=== PATIENT | male | born 1955 | race Caucasian/White ===

== ENCOUNTER 2020-02-14 17:02 | Inpatient (IN) | payer MEDICARE ==
[~2020-02-14] VITALS: Ht 182.9 cm; Wt 117.9 kg
[2020-02-14 18:32] LABS: BASOPHILS % (AUTO) 0.2 % (0.0-5.0); HEMATOCRIT 45.4 % (42-54); LYMPHOCYTES % (AUTO) 10.5 % (21.0-51.0); MEAN CORPUSCULAR HEMOGLOBIN 28.5 pg (27.0-33.0); MEAN CORPUSCULAR HGB CONC 33.9 g/dL (32.0-36.0); MEAN CORPUSCULAR VOLUME 84.1 fL (79-99); NEUTROPHILS % (AUTO) 82.9 % (40.0-77.0); PLATELET COUNT (AUTO) 133 K/uL (130-400); RED CELL DISTRIBUTION WIDTH 13.3 % (11.0-15.5); WHITE BLOOD COUNT (AUTO) 4.5 K/uL (4.8-10.8)
[2020-02-14 18:39] LABS: INR 0.94 (0.85-1.15); PARTIAL THROMBOPLASTIN TIME 32.1 SEC (26.3-35.5); PROTHROMBIN TIME 10.2 SEC (9.6-11.6)
[2020-02-14 18:44] LABS: CRP QUANTITATIVE 95.6 mg/L (0.00-9.0)
[2020-02-14 18:46] LABS: CREATININE 1.1 mg/dL (0.5-1.5); POTASSIUM 3.1 mmol/L (3.5-5.1)
[2020-02-14] MEDS ORDERED: POTASSIUM CHLORIDE 20 MEQ ERTAB PO ONE (18:54)
[2020-02-14 18:58] LABS: ALBUMIN 3.2 g/dL (3.5-5.0); BILIRUBIN,TOTAL 0.9 mg/dL (0.2-1.0); TOTAL PROTEIN, SERUM 7.7 g/dL (6.0-8.3)
[2020-02-14 19:06] LABS: B-TYPE NATRIURETIC PEPTIDE 14 pg/mL (0-100)
[2020-02-14 19:09] LABS: FERRITIN 227 ng/mL (30-400)
[2020-02-14 19:50] LABS: ABG BASE EXCESS 2.6 mmol/L (-2.0-3.0); ABG HCO3 25.4 mmol/L (21.0-28.0); ABG OXYGEN SATURATION 89.3 % (95.0-99.0); ABG PCO2 34 mmHg (35-48)
[2020-02-14 20:17] LABS: ERYTHROCYTE SEDIMENTATION RATE 45 MM/HR (0-20)
[2020-02-14] MEDS ORDERED: LACTULOSE 20 GM/30 ML UDCUP PO PRN (20:45)
[2020-02-14] MEDS ORDERED: LIDOCAINE HCL-MPF 1% 2ML VIAL IV PRN (20:45)
[2020-02-14] MEDS ORDERED: ERGOCALCIFEROL (VITAMIN D2) 50,000 UNIT CAPSULE PO ONE (20:45)
[2020-02-14] MEDS ORDERED: CEFTRIAXONE SODIUM 1 GM IV SCH (20:45)
[2020-02-14] MEDS ORDERED: POTASSIUM CHLORIDE 10MEQ/100ML 100 ML IV PRN (20:45)
[2020-02-14] MEDS ORDERED: AZITHROMYCIN 500MG+NS 250ML 250 ML IV SCH (20:45)
[2020-02-14] MEDS: DEXAMETHASONE SOD PHOSPHATE 4 MG/ML 1ML VIAL IVP SCH (20:45)
[2020-02-14] MEDS ORDERED: PHARMACY COMMUNICATION**REMDESIVIR ORDER MISC SCH (20:45)
[2020-02-14] MEDS ORDERED: ONDANSETRON HCL 4 MG/2 ML VIAL IV PRN (20:45)
[2020-02-14] MEDS ORDERED: ACETAMINOPHEN 325 MG TAB PO PRN (20:45)
[2020-02-14] MEDS ORDERED: AZITHROMYCIN 500MG+NS 250ML 250 ML IV ONE (20:46)
[2020-02-14] MEDS ORDERED: CEFTRIAXONE SODIUM 1 GM ONE (20:47)
[2020-02-14 20:55] LABS: CHOLESTEROL 109 mg/dL (<200); HDL CHOLESTEROL 80 mg/dL (29-71); LDL DIRECT 60 mg/dL (0-99); TRIGLYCERIDES 93 mg/dL (30-200)
[2020-02-14] MEDS: FAMOTIDINE 20MG TAB 20 MG TAB PO SCH (21:00)
[2020-02-14] MEDS ORDERED: IOHEXOL-350 75 ML VIAL IV ONE (21:29)
[2020-02-14 23:24] LABS: APPEARANCE,URINE Clear (CLEAR); BILIRUBIN,URINE Negative (NEGATIVE); COLOR,URINE Dark Yellow (YELLOW); GLUCOSE, URINE (UA) Negative (NEGATIVE); KETONES,URINE Negative (NEGATIVE); LEUKOCYTE ESTERASE ,URINE Negative (NEGATIVE); NITRATE,URINE Negative (NEGATIVE); OCCULT BLOOD,URINE Negative (NEGATIVE); PH,URINE 5.5 (5.0-8.0); PROTEIN,URINE POS 1+ mg/dL (NEGATIVE)
[2020-02-14 23:50] VITALS: BP 137/77
[2020-02-15] MEDS: ACETAMINOPHEN 325 MG TAB PO PRN (02:44)
[2020-02-15] MEDS ORDERED: ASPI-1197 PO (03:12)
[2020-02-15] MEDS ORDERED: CLOB30CR5 TP (03:12)
[2020-02-15] MEDS ORDERED: AMLO-257 PO (03:12)
[2020-02-15] MEDS ORDERED: LOVA40TA2 PO (03:12)
[2020-02-15] MEDS ORDERED: LOSA100T58 PO (03:12)
[2020-02-15] MEDS ORDERED: HYDR25TA PO (03:12)
[2020-02-15] MEDS ORDERED: LEVO100C4 PO (03:12)
[2020-02-15 03:48] VITALS: BP 128/79
[2020-02-15 04:39] LABS: BASOPHILS % (AUTO) 0.2 % (0.0-5.0); HEMATOCRIT 44.4 % (42-54); LYMPHOCYTES % (AUTO) 7.4 % (21.0-51.0); MEAN CORPUSCULAR HEMOGLOBIN 28.6 pg (27.0-33.0); MEAN CORPUSCULAR HGB CONC 33.8 g/dL (32.0-36.0); MEAN CORPUSCULAR VOLUME 84.6 fL (79-99); MONOCYTES % (AUTO) 4.6 % (3.0-13.0); NEUTROPHILS % (AUTO) 87.4 % (40.0-77.0); PLATELET COUNT (AUTO) 141 K/uL (130-400); RED BLOOD CELL COUNT(AUTO) 5.25 MIL/uL (4.50-6.20); RED CELL DISTRIBUTION WIDTH 13.3 % (11.0-15.5); WHITE BLOOD COUNT (AUTO) 5.4 K/uL (4.8-10.8)
[2020-02-15 05:02] LABS: BILIRUBIN,TOTAL 0.8 mg/dL (0.2-1.0); CRP QUANTITATIVE 123.8 mg/L (0.00-9.0); POTASSIUM 3.1 mmol/L (3.5-5.1); TOTAL PROTEIN, SERUM 7.4 g/dL (6.0-8.3)
[2020-02-15] MEDS: POTASSIUM CHLORIDE 20 MEQ ERTAB PO PRN ×3 (06:55→12:41)
[2020-02-15 07:00] VITALS: BP 119/65
[2020-02-15] MEDS ORDERED: REMDESIVIR (EUA) 520 200 MG in SODIUM CHLORIDE 0.9% 250 ML IV ONE (07:45)
[2020-02-15] MEDS ORDERED: COMPOUND IV REFRIGERATED 1 EACH IVSOLN MISC PRN (07:45)
[2020-02-15] MEDS: ZINC SULFATE 220 CAPSULE PO SCH (08:08)
[2020-02-15] MEDS: ASCORBIC ACID 500 MG TAB PO SCH (08:08)
[2020-02-15] MEDS: FAMOTIDINE 20MG TAB 20 MG TAB PO SCH ×2 (08:08→22:01)
[2020-02-15] MEDS ORDERED: ENOXAPARIN SODIUM 120 MG/0.8ML SQ SCH (09:00)
[2020-02-15] MEDS ORDERED: ENOXAPARIN SODIUM 1 MG/KG SQ SCH (09:00)
[2020-02-15 11:00] VITALS: BP 127/66
[2020-02-15] MEDS ORDERED: SODIUM CHLORIDE 0.9% 250 ML IV ONE (13:01)
[2020-02-15 16:00] VITALS: BP 138/76
[2020-02-15 19:20] VITALS: BP 103/66
[2020-02-15] MEDS: ENOXAPARIN SODIUM 120 MG/0.8ML SQ SCH (22:01)
[2020-02-15] MEDS: DEXAMETHASONE SOD PHOSPHATE 4 MG/ML 1ML VIAL IVP SCH (22:02)
[2020-02-16] VITALS (46 sets, daily range): BP systolic 97–129; BP diastolic 41–75
[2020-02-16 04:48] LABS: HEMATOCRIT 43.7 % (42-54); LYMPHOCYTES % (AUTO) 7.6 % (21.0-51.0); MEAN CORPUSCULAR HEMOGLOBIN 28.2 pg (27.0-33.0); MEAN CORPUSCULAR VOLUME 85.7 fL (79-99); MONOCYTES % (AUTO) 2.9 % (3.0-13.0); PLATELET COUNT (AUTO) 152 K/uL (130-400); RED CELL DISTRIBUTION WIDTH 13.2 % (11.0-15.5); WHITE BLOOD COUNT (AUTO) 6.3 K/uL (4.8-10.8)
[2020-02-16 05:12] LABS: ALBUMIN 2.8 g/dL (3.5-5.0); BILIRUBIN,DIRECT 0.2 mg/dL (0.0-0.3); BILIRUBIN,TOTAL 0.8 mg/dL (0.2-1.0); POTASSIUM 3.5 mmol/L (3.5-5.1); TOTAL PROTEIN, SERUM 7.3 g/dL (6.0-8.3)
[2020-02-16] MEDS: PHARMACY COMMUNICATION MISC SCH (06:00)
[2020-02-16 06:04] LABS: CRP QUANTITATIVE 170.9 mg/L (0.00-9.0)
[2020-02-16] MEDS: POTASSIUM CHLORIDE 20 MEQ ERTAB PO PRN ×2 (06:13→08:52)
[2020-02-16] MEDS: ASCORBIC ACID 500 MG TAB PO SCH (08:52)
[2020-02-16] MEDS: ZINC SULFATE 220 CAPSULE PO SCH (08:52)
[2020-02-16] MEDS: FAMOTIDINE 20MG TAB 20 MG TAB PO SCH ×2 (08:52→20:25)
[2020-02-16] MEDS: REMDESIVIR (EUA) 520 100 MG in SODIUM CHLORIDE 0.9% 250 ML IV SCH (08:53)
[2020-02-16] MEDS: ENOXAPARIN SODIUM 120 MG/0.8ML SQ SCH ×2 (08:53→20:25)
[2020-02-16] MEDS: DEXAMETHASONE SOD PHOSPHATE 4 MG/ML 1ML VIAL IVP SCH ×2 (09:10→20:25)
[2020-02-16] MEDS ORDERED: FUROSEMIDE 10 MG/ML 10ML VIAL IVP SCH (12:27)
[2020-02-16] MEDS ORDERED: FUROSEMIDE 10 MG/ML 4ML VIAL IVP SCH (14:00)
[2020-02-16] MEDS: FUROSEMIDE 10 MG/ML 2ML VIAL IV SCH (20:28)
[2020-02-17] VITALS (62 sets, daily range): BP systolic 81–142; BP diastolic 39–74
[2020-02-17 04:03] LABS: BASOPHILS % (AUTO) 0.1 % (0.0-5.0); HEMATOCRIT 45.6 % (42-54); LYMPHOCYTES % (AUTO) 7.5 % (21.0-51.0); MEAN CORPUSCULAR HEMOGLOBIN 28.3 pg (27.0-33.0); MEAN CORPUSCULAR HGB CONC 33.6 g/dL (32.0-36.0); MEAN CORPUSCULAR VOLUME 84.4 fL (79-99); MONOCYTES % (AUTO) 3.2 % (3.0-13.0); NEUTROPHILS % (AUTO) 88.8 % (40.0-77.0); PLATELET COUNT (AUTO) 206 K/uL (130-400); RED CELL DISTRIBUTION WIDTH 13.3 % (11.0-15.5); WHITE BLOOD COUNT (AUTO) 7.7 K/uL (4.8-10.8)
[2020-02-17 04:23] LABS: ALBUMIN 2.6 g/dL (3.5-5.0); BILIRUBIN,TOTAL 0.7 mg/dL (0.2-1.0); CREATININE 1.1 mg/dL (0.5-1.5); CRP QUANTITATIVE 107.9 mg/L (0.00-9.0); POTASSIUM 3.4 mmol/L (3.5-5.1); TOTAL PROTEIN, SERUM 7.1 g/dL (6.0-8.3)
[2020-02-17] MEDS: FUROSEMIDE 10 MG/ML 2ML VIAL IV SCH ×3 (04:30→21:52)
[2020-02-17] MEDS: POTASSIUM CHLORIDE 10% ELIXIR 20 MEQ/15 ML UDCUP PO PRN ×2 (04:36→10:25)
[2020-02-17] MEDS: PHARMACY COMMUNICATION MISC SCH (06:00)
[2020-02-17] MEDS: FAMOTIDINE 20MG TAB 20 MG TAB PO SCH ×2 (08:10→21:42)
[2020-02-17] MEDS: ENOXAPARIN SODIUM 120 MG/0.8ML SQ SCH ×2 (08:10→21:42)
[2020-02-17] MEDS: DEXAMETHASONE SOD PHOSPHATE 4 MG/ML 1ML VIAL IVP SCH ×2 (08:11→21:41)
[2020-02-17] MEDS: ASCORBIC ACID 500 MG TAB PO SCH (08:11)
[2020-02-17] MEDS: REMDESIVIR (EUA) 520 100 MG in SODIUM CHLORIDE 0.9% 250 ML IV SCH (08:11)
[2020-02-17] MEDS: ZINC SULFATE 220 CAPSULE PO SCH (08:11)
[2020-02-18] VITALS (42 sets, daily range): BP systolic 110–153; BP diastolic 33–83
[2020-02-18] MEDS: FUROSEMIDE 10 MG/ML 2ML VIAL IV SCH ×3 (05:17→20:42)
[2020-02-18] MEDS: PHARMACY COMMUNICATION MISC SCH (06:00)
[2020-02-18 06:32] LABS: ALBUMIN 2.7 g/dL (3.5-5.0); BILIRUBIN,DIRECT 0.1 mg/dL (0.0-0.3); BILIRUBIN,TOTAL 0.6 mg/dL (0.2-1.0); POTASSIUM 3.4 mmol/L (3.5-5.1); TOTAL PROTEIN, SERUM 7.2 g/dL (6.0-8.3)
[2020-02-18] MEDS: ENOXAPARIN SODIUM 120 MG/0.8ML SQ SCH ×2 (09:04→20:43)
[2020-02-18] MEDS: ASCORBIC ACID 500 MG TAB PO SCH (09:05)
[2020-02-18] MEDS: DEXAMETHASONE SOD PHOSPHATE 4 MG/ML 1ML VIAL IVP SCH ×2 (09:05→20:42)
[2020-02-18] MEDS: FAMOTIDINE 20MG TAB 20 MG TAB PO SCH ×2 (09:05→20:43)
[2020-02-18] MEDS: ZINC SULFATE 220 CAPSULE PO SCH (09:05)
[2020-02-18] MEDS: REMDESIVIR (EUA) 520 100 MG in SODIUM CHLORIDE 0.9% 250 ML IV SCH (09:44)
[2020-02-19] VITALS (20 sets, daily range): BP systolic 113–173; BP diastolic 49–80
[2020-02-19] MEDS: FUROSEMIDE 10 MG/ML 2ML VIAL IV SCH ×3 (06:09→20:26)
[2020-02-19] MEDS: LEVOTHYROXINE 100 MCG TABLET PO SCH (06:10)
[2020-02-19] MEDS: ACETAMINOPHEN 325 MG TAB PO PRN (06:10)
[2020-02-19] MEDS: PHARMACY COMMUNICATION MISC SCH (06:11)
[2020-02-19] MEDS: FAMOTIDINE 20MG TAB 20 MG TAB PO SCH ×2 (08:16→20:27)
[2020-02-19] MEDS: ZINC SULFATE 220 CAPSULE PO SCH (08:16)
[2020-02-19] MEDS: ASCORBIC ACID 500 MG TAB PO SCH (08:16)
[2020-02-19] MEDS: DEXAMETHASONE SOD PHOSPHATE 4 MG/ML 1ML VIAL IVP SCH ×2 (08:17→20:26)
[2020-02-19] MEDS: ENOXAPARIN SODIUM 120 MG/0.8ML SQ SCH ×2 (08:18→20:27)
[2020-02-19] MEDS ORDERED: NON-FORMULARY MEDICATION 1 EACH (Levothyroxine Sodium (Levothyroxine) 100 MCG) PO SCH (09:00)
[2020-02-19] MEDS ORDERED: SENNOSIDES 8.6 MG TABLET PO SCH (09:45)
[2020-02-19] MEDS: SODIUM CHLORIDE 45 ML SPRY NS SCH ×4 (12:08→20:28)
[2020-02-19 13:24] LABS: ALBUMIN 2.8 g/dL (3.5-5.0); BILIRUBIN,DIRECT 0.2 mg/dL (0.0-0.3); BILIRUBIN,TOTAL 0.7 mg/dL (0.2-1.0); POTASSIUM 3.6 mmol/L (3.5-5.1)
[2020-02-19] MEDS: POTASSIUM CHLORIDE 20 MEQ ERTAB PO PRN (14:03)
[2020-02-19] MEDS: REMDESIVIR (EUA) 520 100 MG in SODIUM CHLORIDE 0.9% 250 ML IV SCH (14:28)
[2020-02-19] MEDS: DOCUSATE SODIUM 100 MG CAP PO SCH (20:26)
[2020-02-19] MEDS: SIMVASTATIN 10 MG TABLET PO SCH (20:27)
[2020-02-19] MEDS: INSULIN HUMULIN R 100 UNIT/ML 3ML SQ SCH (21:00)
[2020-02-20] VITALS (24 sets, daily range): BP systolic 105–148; BP diastolic 43–115
[2020-02-20 04:18] LABS: HEMATOCRIT 45.9 % (42-54); MEAN CORPUSCULAR HGB CONC 32.9 g/dL (32.0-36.0); PLATELET COUNT (AUTO) 293 K/uL (130-400); RED CELL DISTRIBUTION WIDTH 13.3 % (11.0-15.5); WHITE BLOOD COUNT (AUTO) 10.7 K/uL (4.8-10.8)
[2020-02-20 04:27] LABS: CREATININE 0.9 mg/dL (0.5-1.5); MAGNESIUM 2.4 mg/dL (1.80-2.40); POTASSIUM 3.3 mmol/L (3.5-5.1)
[2020-02-20 04:44] LABS: LYMPHOCYTES % (MANUAL) 4 % (22-44); MAN.DIFF COMMENT-IMPRESSION MANUAL DIFFERENTIAL; MONOCYTES % (MANUAL) 1 % (2-9); SEGMENTED NEUTROPHILS % 95 % (40-70)
[2020-02-20 04:45] LABS: PLATELET MORPHOLOGY COMMENT ADEQUATE
[2020-02-20] MEDS: LEVOTHYROXINE 100 MCG TABLET PO SCH (05:39)
[2020-02-20] MEDS: FUROSEMIDE 10 MG/ML 2ML VIAL IV SCH ×3 (05:39→20:21)
[2020-02-20] MEDS: PHARMACY COMMUNICATION MISC SCH (05:40)
[2020-02-20 06:33] LABS: HEMOGLOBIN A1C 6.3 % (4.0-6.0)
[2020-02-20] MEDS: INSULIN HUMULIN R 100 UNIT/ML 3ML SQ SCH ×4 (07:30→20:36)
[2020-02-20 08:02] LABS: ALBUMIN 2.7 g/dL (3.5-5.0); BILIRUBIN,DIRECT 0.2 mg/dL (0.0-0.3); BILIRUBIN,TOTAL 0.8 mg/dL (0.2-1.0); TOTAL PROTEIN, SERUM 6.8 g/dL (6.0-8.3)
[2020-02-20] MEDS: SENNOSIDES 8.6 MG TABLET PO SCH (08:57)
[2020-02-20] MEDS: FAMOTIDINE 20MG TAB 20 MG TAB PO SCH ×2 (08:57→20:21)
[2020-02-20] MEDS: ASCORBIC ACID 500 MG TAB PO SCH (08:57)
[2020-02-20] MEDS: DEXAMETHASONE SOD PHOSPHATE 4 MG/ML 1ML VIAL IVP SCH ×2 (08:57→20:21)
[2020-02-20] MEDS: DOCUSATE SODIUM 100 MG CAP PO SCH ×2 (08:57→20:21)
[2020-02-20] MEDS: ZINC SULFATE 220 CAPSULE PO SCH (08:57)
[2020-02-20] MEDS: ENOXAPARIN SODIUM 120 MG/0.8ML SQ SCH ×2 (08:58→20:22)
[2020-02-20] MEDS: SODIUM CHLORIDE 45 ML SPRY NS SCH ×4 (08:58→20:23)
[2020-02-20] MEDS: POTASSIUM CHLORIDE 20 MEQ ERTAB PO PRN ×2 (09:23→12:09)
[2020-02-20 11:08] LABS: ABG BASE EXCESS 1.2 mmol/L (-2.0-3.0); ABG HCO3 22.9 mmol/L (21.0-28.0); ABG OXYGEN SATURATION 86.1 % (95.0-99.0); ABG PCO2 29 mmHg (35-48)
[2020-02-20] MEDS: SIMVASTATIN 10 MG TABLET PO SCH (20:21)
[2020-02-21] VITALS (23 sets, daily range): BP systolic 110–143; BP diastolic 56–80
[2020-02-21 04:02] LABS: ABG BASE EXCESS 2.4 mmol/L (-2.0-3.0); ABG HCO3 25.2 mmol/L (21.0-28.0); ABG OXYGEN SATURATION 95.1 % (95.0-99.0); ABG PCO2 34 mmHg (35-48)
[2020-02-21 04:44] LABS: BASOPHILS % (AUTO) 0.2 % (0.0-5.0); EOSINOPHILS % (AUTO) 0.1 % (0.0-8.0); MEAN CORPUSCULAR HEMOGLOBIN 27.9 pg (27.0-33.0); MEAN CORPUSCULAR HGB CONC 32.9 g/dL (32.0-36.0); MEAN CORPUSCULAR VOLUME 84.7 fL (79-99); MONOCYTES % (AUTO) 2.1 % (3.0-13.0); NEUTROPHILS % (AUTO) 92.4 % (40.0-77.0); PLATELET COUNT (AUTO) 325 K/uL (130-400); RED BLOOD CELL COUNT(AUTO) 5.67 MIL/uL (4.50-6.20); RED CELL DISTRIBUTION WIDTH 13.3 % (11.0-15.5); WHITE BLOOD COUNT (AUTO) 9.8 K/uL (4.8-10.8)
[2020-02-21 04:59] LABS: CREATININE 0.8 mg/dL (0.5-1.5); CRP QUANTITATIVE 43.6 mg/L (0.00-9.0); POTASSIUM 3.6 mmol/L (3.5-5.1)
[2020-02-21] MEDS: FUROSEMIDE 10 MG/ML 2ML VIAL IV SCH ×3 (05:10→21:25)
[2020-02-21] MEDS: POTASSIUM CHLORIDE 20 MEQ ERTAB PO PRN ×2 (05:10→05:34)
[2020-02-21] MEDS: LEVOTHYROXINE 100 MCG TABLET PO SCH (05:10)
[2020-02-21] MEDS: INSULIN HUMULIN R 100 UNIT/ML 3ML SQ SCH ×4 (07:30→21:00)
[2020-02-21] MEDS: DOCUSATE SODIUM 100 MG CAP PO SCH ×4 (08:18→21:23)
[2020-02-21] MEDS: ASCORBIC ACID 500 MG TAB PO SCH (08:18)
[2020-02-21] MEDS: ZINC SULFATE 220 CAPSULE PO SCH (08:18)
[2020-02-21] MEDS: SENNOSIDES 8.6 MG TABLET PO SCH (08:18)
[2020-02-21] MEDS: FAMOTIDINE 20MG TAB 20 MG TAB PO SCH ×2 (08:19→21:28)
[2020-02-21] MEDS: DEXAMETHASONE SOD PHOSPHATE 4 MG/ML 1ML VIAL IVP SCH ×2 (08:19→21:25)
[2020-02-21] MEDS: ENOXAPARIN SODIUM 120 MG/0.8ML SQ SCH (08:19)
[2020-02-21] MEDS: SODIUM CHLORIDE 45 ML SPRY NS SCH ×4 (08:20→21:28)
[2020-02-21] MEDS: ENOXAPARIN SODIUM 60 MG/0.6 ML SQ SCH ×2 (09:00→21:27)
[2020-02-21] MEDS ORDERED: POLYETHYLENE GLYCOL 3350 17 GM POWD.PACK PO SCH (09:15)
[2020-02-21] MEDS: SIMVASTATIN 10 MG TABLET PO SCH (21:22)
[2020-02-22] VITALS (20 sets, daily range): BP systolic 118–167; BP diastolic 60–86
[2020-02-22 04:23] LABS: CREATININE 0.9 mg/dL (0.5-1.5); CRP QUANTITATIVE 32.1 mg/L (0.00-9.0); MAGNESIUM 2.5 mg/dL (1.80-2.40); POTASSIUM 3.4 mmol/L (3.5-5.1)
[2020-02-22] MEDS: POTASSIUM CHLORIDE 20 MEQ ERTAB PO PRN (05:23)
[2020-02-22] MEDS: FUROSEMIDE 10 MG/ML 2ML VIAL IV SCH ×3 (06:33→20:53)
[2020-02-22] MEDS: LEVOTHYROXINE 100 MCG TABLET PO SCH (06:37)
[2020-02-22] MEDS: INSULIN HUMULIN R 100 UNIT/ML 3ML SQ SCH ×4 (07:30→21:00)
[2020-02-22] MEDS: SODIUM CHLORIDE 45 ML SPRY NS SCH ×4 (09:00→20:58)
[2020-02-22] MEDS: ENOXAPARIN SODIUM 60 MG/0.6 ML SQ SCH ×2 (09:19→20:54)
[2020-02-22] MEDS: DEXAMETHASONE SOD PHOSPHATE 4 MG/ML 1ML VIAL IVP SCH ×2 (09:19→20:53)
[2020-02-22] MEDS: DOCUSATE SODIUM 100 MG CAP PO SCH ×3 (09:20→20:53)
[2020-02-22] MEDS: ZINC SULFATE 220 CAPSULE PO SCH (09:20)
[2020-02-22] MEDS: ASCORBIC ACID 500 MG TAB PO SCH (09:20)
[2020-02-22] MEDS: SENNOSIDES 8.6 MG TABLET PO SCH (09:20)
[2020-02-22] MEDS: FAMOTIDINE 20MG TAB 20 MG TAB PO SCH ×2 (09:20→20:53)
[2020-02-22] MEDS: POTASSIUM CHLORIDE 10MEQ/100ML 100 ML IV SCH ×2 (10:41→20:56)
[2020-02-22] MEDS: SIMVASTATIN 10 MG TABLET PO SCH (20:53)
[2020-02-22] MEDS ORDERED: POTASSIUM CHLORIDE 10MEQ/100ML 10 MEQ/100 ML ML IV SCH (21:00)
[2020-02-23] VITALS (23 sets, daily range): BP systolic 118–150; BP diastolic 62–88
[2020-02-23 04:31] LABS: HEMATOCRIT 47.7 % (42-54); MEAN CORPUSCULAR HEMOGLOBIN 28.3 pg (27.0-33.0); MEAN CORPUSCULAR HGB CONC 33.1 g/dL (32.0-36.0); MEAN CORPUSCULAR VOLUME 85.3 fL (79-99); RED BLOOD CELL COUNT(AUTO) 5.59 MIL/uL (4.50-6.20); RED CELL DISTRIBUTION WIDTH 13.3 % (11.0-15.5)
[2020-02-23 04:42] LABS: ALBUMIN 2.5 g/dL (3.5-5.0); CARBON DIOXIDE 27 mmol/L (21-32); CHLORIDE 103 mmol/L (101-111); CREATININE 0.9 mg/dL (0.5-1.5); GLOMERULAR FILTR. RATE CALC 90 mL/min (>60); GLUCOSE,RANDOM 147 mg/dL (70-105); POTASSIUM 3.7 mmol/L (3.5-5.1); SODIUM SERUM 140 mmol/L (136-145); UREA NITROGEN, BLOOD 30 mg/dL (7-18)
[2020-02-23] MEDS: FUROSEMIDE 10 MG/ML 2ML VIAL IV SCH (06:03)
[2020-02-23] MEDS: LEVOTHYROXINE 100 MCG TABLET PO SCH (06:07)
[2020-02-23] MEDS: INSULIN HUMULIN R 100 UNIT/ML 3ML SQ SCH ×4 (06:29→21:00)
[2020-02-23] MEDS: SENNOSIDES 8.6 MG TABLET PO SCH (10:07)
[2020-02-23] MEDS: DEXAMETHASONE SOD PHOSPHATE 4 MG/ML 1ML VIAL IVP SCH ×2 (10:07→22:20)
[2020-02-23] MEDS: ZINC SULFATE 220 CAPSULE PO SCH (10:07)
[2020-02-23] MEDS: DOCUSATE SODIUM 100 MG CAP PO SCH ×3 (10:08→21:00)
[2020-02-23] MEDS: ENOXAPARIN SODIUM 60 MG/0.6 ML SQ SCH ×2 (10:08→22:00)
[2020-02-23] MEDS: ASCORBIC ACID 500 MG TAB PO SCH (10:08)
[2020-02-23] MEDS: SODIUM CHLORIDE 45 ML SPRY NS SCH ×4 (10:09→21:00)
[2020-02-23] MEDS ORDERED: FAMOTIDINE 20MG TAB 20 MG TAB PO SCH (21:00)
[2020-02-23] MEDS: SIMVASTATIN 10 MG TABLET PO SCH (21:00)
[2020-02-23] MEDS ORDERED: ENOXAPARIN SODIUM 80 MG/0.8 ML SQ ONE (22:46)
[2020-02-24] VITALS (16 sets, daily range): BP systolic 97–161; BP diastolic 41–100
[2020-02-24] MEDS: LEVOTHYROXINE 100 MCG TABLET PO SCH (06:02)
[2020-02-24] MEDS: INSULIN HUMULIN R 100 UNIT/ML 3ML SQ SCH ×4 (07:30→20:55)
[2020-02-24 08:25] LABS: CREATININE 0.9 mg/dL (0.5-1.5); POTASSIUM 3.5 mmol/L (3.5-5.1)
[2020-02-24] MEDS: DOCUSATE SODIUM 100 MG CAP PO SCH ×3 (09:11→20:53)
[2020-02-24] MEDS: FAMOTIDINE 20MG TAB 20 MG TAB PO SCH (09:11)
[2020-02-24] MEDS: ZINC SULFATE 220 CAPSULE PO SCH (09:11)
[2020-02-24] MEDS: ASCORBIC ACID 500 MG TAB PO SCH (09:12)
[2020-02-24] MEDS: FUROSEMIDE 40 MG TABLET PO SCH (09:12)
[2020-02-24] MEDS: DEXAMETHASONE SOD PHOSPHATE 4 MG/ML 1ML VIAL IVP SCH ×2 (09:12→20:53)
[2020-02-24] MEDS: SENNOSIDES 8.6 MG TABLET PO SCH (09:12)
[2020-02-24] MEDS: ENOXAPARIN SODIUM 60 MG/0.6 ML SQ SCH ×2 (09:13→20:54)
[2020-02-24] MEDS: SODIUM CHLORIDE 45 ML SPRY NS SCH ×4 (09:13→20:56)
[2020-02-24] MEDS ORDERED: QUETIAPINE FUMARATE 25 MG TAB PO SCH (18:50)
[2020-02-24] MEDS: SIMVASTATIN 10 MG TABLET PO SCH (20:53)
[2020-02-24] MEDS ORDERED: PROPOFOL 1000 MG/100 ML 100 ML IV ONE ×2 (22:08→23:59)
[2020-02-24] MEDS ORDERED: FENTANYL CITRATE PF 0.05 MG/ML 1,000 MCG in SODIUM CHLORIDE 0.9% 100 ML IVPB PRN (22:45)
[2020-02-24] MEDS ORDERED: NOREPINEPHRINE 4MG/NS 250ML 250 ML IV PRN (22:45)
[2020-02-24] MEDS ORDERED: FENTANYL 2500MCG+NS 250ML 250 ML IV ONE (22:47)
[2020-02-24] MEDS ORDERED: VECURONIUM BROMIDE 10 MG ML IV ONE (22:47)
[2020-02-25] VITALS (55 sets, daily range): BP systolic 100–174; BP diastolic 55–91
[2020-02-25 00:18] LABS: ABG BASE EXCESS -5.7 mmol/L (-2.0-3.0); ABG HCO3 25.2 mmol/L (21.0-28.0); ABG PCO2 72 mmHg (35-48)
[2020-02-25] MEDS ORDERED: DEXTROSE 5%-WATER 1,000 ML IV ONE (00:36)
[2020-02-25] MEDS ORDERED: SODIUM BICARB 50MEQ 50ML VIAL 150 ML ONE (00:37)
[2020-02-25] MEDS: SODIUM BICARB 8.4% 50ML SYRING 150 MEQ in DEXTROSE 5%-WATER 1,000 ML IVP SCH ×3 (01:04→20:39)
[2020-02-25] MEDS ORDERED: MAGNESIUM 2GM PREMIX 50ML 50 ML IV PRN (01:15)
[2020-02-25 05:56] LABS: BASOPHILS % (AUTO) 0.4 % (0.0-5.0); LYMPHOCYTES % (AUTO) 1.3 % (21.0-51.0); MEAN CORPUSCULAR HGB CONC 31.3 g/dL (32.0-36.0); MEAN CORPUSCULAR VOLUME 89.3 fL (79-99); MONOCYTES % (AUTO) 3.2 % (3.0-13.0); NEUTROPHILS % (AUTO) 91.6 % (40.0-77.0); PLATELET COUNT (AUTO) 416 K/uL (130-400); RED BLOOD CELL COUNT(AUTO) 5.82 MIL/uL (4.50-6.20); RED CELL DISTRIBUTION WIDTH 13.7 % (11.0-15.5); WHITE BLOOD COUNT (AUTO) 29.4 K/uL (4.8-10.8)
[2020-02-25 06:17] LABS: ALBUMIN 2.3 g/dL (3.5-5.0); BILIRUBIN,TOTAL 0.8 mg/dL (0.2-1.0); CREATININE 1.3 mg/dL (0.5-1.5); CRP QUANTITATIVE 142.8 mg/L (0.00-9.0); MAGNESIUM 3.9 mg/dL (1.80-2.40); POTASSIUM 4.4 mmol/L (3.5-5.1); TOTAL PROTEIN, SERUM 7.3 g/dL (6.0-8.3)
[2020-02-25] MEDS: LEVOTHYROXINE 100 MCG TABLET PO SCH ×2 (06:30→07:50)
[2020-02-25] MEDS: VECURONIUM BROMIDE 50 MG in SODIUM CHLORIDE 0.9% 50 ML IV PRN ×3 (06:59→18:41)
[2020-02-25] MEDS: PROPOFOL 1000 MG/100 ML 100 ML IV PRN ×4 (07:07→21:49)
[2020-02-25 07:55] LABS: ABG BASE EXCESS -0.1 mmol/L (-2.0-3.0); ABG HCO3 28.8 mmol/L (21.0-28.0); ABG OXYGEN SATURATION 93.8 % (95.0-99.0); ABG PCO2 66 mmHg (35-48)
[2020-02-25] MEDS: ZINC SULFATE 220 CAPSULE PO SCH (08:37)
[2020-02-25] MEDS: DOCUSATE SODIUM 100 MG CAP PO SCH ×3 (08:38→20:36)
[2020-02-25] MEDS: SENNOSIDES 8.6 MG TABLET PO SCH (08:38)
[2020-02-25] MEDS: ASCORBIC ACID 500 MG TAB PO SCH (08:38)
[2020-02-25] MEDS: FAMOTIDINE 20MG TAB 20 MG TAB PO SCH (08:38)
[2020-02-25] MEDS: ENOXAPARIN SODIUM 60 MG/0.6 ML SQ SCH ×2 (08:39→20:39)
[2020-02-25] MEDS: DEXAMETHASONE SOD PHOSPHATE 4 MG/ML 1ML VIAL IVP SCH ×2 (08:39→20:35)
[2020-02-25] MEDS: INSULIN HUMULIN R 100 UNIT/ML 3ML SQ SCH ×3 (08:46→17:26)
[2020-02-25] MEDS: FUROSEMIDE 40 MG TABLET PO SCH (09:00)
[2020-02-25] MEDS: SODIUM CHLORIDE 45 ML SPRY NS SCH ×4 (09:40→20:36)
[2020-02-25] MEDS ORDERED: FENTANYL 2500MCG+NS 250ML 250 ML IV ONE (11:24)
[2020-02-25] MEDS ORDERED: RENAL DOSE IV SCH (13:45)
[2020-02-25] MEDS ORDERED: DEXMEDETOMIDINE HCL 200 MCG in SODIUM CHLORIDE 0.9% 50 ML IV SCH (14:00)
[2020-02-25] MEDS ORDERED: DEXMEDETOMIDINE HCL 400 MCG in SODIUM CHLORIDE 0.9% 100 ML IV SCH (14:15)
[2020-02-25] MEDS: AZITHROMYCIN 500MG+NS 250ML 250 ML IV SCH (14:38)
[2020-02-25] MEDS: CEFEPIME HCL 2 GM VIAL IVP SCH (14:38)
[2020-02-25] MEDS: ARTIFICAL TEARS SOL 15 ML OD SCH ×2 (16:56→20:35)
[2020-02-25] MEDS: SIMVASTATIN 10 MG TABLET PO SCH (20:36)
[2020-02-26] VITALS (64 sets, daily range): BP systolic 97–164; BP diastolic 55–87
[2020-02-26] MEDS: PROPOFOL 1000 MG/100 ML 100 ML IV PRN ×7 (01:59→20:45)
[2020-02-26] MEDS: CEFEPIME HCL 2 GM VIAL IVP SCH ×2 (02:01→14:25)
[2020-02-26] MEDS: ARTIFICAL TEARS SOL 15 ML OD SCH ×6 (04:00→20:54)
[2020-02-26 04:13] LABS: ABG BASE EXCESS 9.8 mmol/L (-2.0-3.0); ABG HCO3 37.5 mmol/L (21.0-28.0); ABG OXYGEN SATURATION 96.7 % (95.0-99.0); ABG PCO2 63 mmHg (35-48)
[2020-02-26 05:58] LABS: BASOPHILS % (AUTO) 0.2 % (0.0-5.0); HEMATOCRIT 47.6 % (42-54); LYMPHOCYTES % (AUTO) 2.6 % (21.0-51.0); MEAN CORPUSCULAR HEMOGLOBIN 28.2 pg (27.0-33.0); MEAN CORPUSCULAR HGB CONC 31.5 g/dL (32.0-36.0); MEAN CORPUSCULAR VOLUME 89.5 fL (79-99); MONOCYTES % (AUTO) 4.7 % (3.0-13.0); NEUTROPHILS % (AUTO) 91.4 % (40.0-77.0); PLATELET COUNT (AUTO) 326 K/uL (130-400); RED BLOOD CELL COUNT(AUTO) 5.32 MIL/uL (4.50-6.20); RED CELL DISTRIBUTION WIDTH 13.6 % (11.0-15.5); WHITE BLOOD COUNT (AUTO) 19.9 K/uL (4.8-10.8)
[2020-02-26 06:14] LABS: ALBUMIN 1.9 g/dL (3.5-5.0); BILIRUBIN,DIRECT 0.3 mg/dL (0.0-0.3); BILIRUBIN,TOTAL 0.6 mg/dL (0.2-1.0); CRP QUANTITATIVE 131.7 mg/L (0.00-9.0); MAGNESIUM 2.9 mg/dL (1.80-2.40); POTASSIUM 4.1 mmol/L (3.5-5.1); TOTAL PROTEIN, SERUM 6.3 g/dL (6.0-8.3)
[2020-02-26] MEDS: LEVOTHYROXINE 100 MCG TABLET PO SCH (06:27)
[2020-02-26] MEDS: INSULIN HUMULIN R 100 UNIT/ML 3ML SQ SCH ×4 (06:30→18:00)
[2020-02-26] MEDS: SODIUM BICARB 8.4% 50ML SYRING 150 MEQ in DEXTROSE 5%-WATER 1,000 ML IVP SCH (07:35)
[2020-02-26] MEDS ORDERED: PANTOPRAZOLE 40 MG/VIAL IVP SCH (09:00)
[2020-02-26] MEDS: SENNOSIDES 8.6 MG TABLET PO SCH (09:28)
[2020-02-26] MEDS: DOCUSATE SODIUM 100 MG CAP PO SCH ×3 (09:28→20:46)
[2020-02-26] MEDS: ASCORBIC ACID 500 MG TAB PO SCH (09:28)
[2020-02-26] MEDS: DEXAMETHASONE SOD PHOSPHATE 4 MG/ML 1ML VIAL IVP SCH (09:28)
[2020-02-26] MEDS: ENOXAPARIN SODIUM 60 MG/0.6 ML SQ SCH ×2 (09:29→20:47)
[2020-02-26] MEDS: SODIUM CHLORIDE 45 ML SPRY NS SCH ×4 (09:30→20:54)
[2020-02-26] MEDS: VECURONIUM BROMIDE 50 MG in SODIUM CHLORIDE 0.9% 50 ML IV PRN (09:40)
[2020-02-26] MEDS: ZINC SULFATE 220 CAPSULE PO SCH (09:44)
[2020-02-26] MEDS ORDERED: FENTANYL 2500MCG+NS 250ML 250 ML IV ONE (10:13)
[2020-02-26 11:18] LABS: ABG BASE EXCESS 10.3 mmol/L (-2.0-3.0); ABG OXYGEN SATURATION 96.7 % (95.0-99.0); ABG PCO2 70 mmHg (35-48)
[2020-02-26] MEDS ORDERED: PHARMACY COMMUNICATION MISC SCH (11:30)
[2020-02-26] MEDS: FENTANYL 2500MCG+NS 250ML 250 ML IV SCH (12:07)
[2020-02-26] MEDS: AZITHROMYCIN 500MG+NS 250ML 250 ML IV SCH (14:25)
[2020-02-26] MEDS: INSULIN GLARGINE 100 UNITS/ML 10 ML VIAL SQ SCH (21:34)
[2020-02-27] VITALS (40 sets, daily range): BP systolic 110–170; BP diastolic 54–90
[2020-02-27] MEDS: VECURONIUM BROMIDE 50 MG in SODIUM CHLORIDE 0.9% 50 ML IV PRN ×3 (00:35→23:11)
[2020-02-27] MEDS: PROPOFOL 1000 MG/100 ML 100 ML IV PRN ×6 (00:51→21:37)
[2020-02-27] MEDS: CEFEPIME HCL 2 GM VIAL IVP SCH ×2 (01:14→13:26)
[2020-02-27] MEDS: ARTIFICAL TEARS SOL 15 ML OD SCH ×7 (01:15→23:16)
[2020-02-27] MEDS: INSULIN HUMULIN R 100 UNIT/ML 3ML SQ SCH ×5 (01:34→23:49)
[2020-02-27 03:55] LABS: ABG HCO3 39.9 mmol/L (21.0-28.0); ABG OXYGEN SATURATION 98.8 % (95.0-99.0); ABG PCO2 66 mmHg (35-48)
[2020-02-27 04:10] LABS: BASOPHILS % (AUTO) 0.2 % (0.0-5.0); HEMATOCRIT 47.3 % (42-54); LYMPHOCYTES % (AUTO) 3.1 % (21.0-51.0); MEAN CORPUSCULAR HEMOGLOBIN 27.9 pg (27.0-33.0); MEAN CORPUSCULAR HGB CONC 30.7 g/dL (32.0-36.0); MEAN CORPUSCULAR VOLUME 91.1 fL (79-99); MONOCYTES % (AUTO) 8.1 % (3.0-13.0); NEUTROPHILS % (AUTO) 87.4 % (40.0-77.0); PLATELET COUNT (AUTO) 276 K/uL (130-400); RED BLOOD CELL COUNT(AUTO) 5.19 MIL/uL (4.50-6.20); RED CELL DISTRIBUTION WIDTH 13.7 % (11.0-15.5)
[2020-02-27 04:27] LABS: ALBUMIN 1.9 g/dL (3.5-5.0); BILIRUBIN,TOTAL 0.6 mg/dL (0.2-1.0); CREATININE 1.3 mg/dL (0.5-1.5); CRP QUANTITATIVE 64.4 mg/L (0.00-9.0); MAGNESIUM 3.4 mg/dL (1.80-2.40); PHOSPHORUS 2.7 mg/dL (2.5-4.9); POTASSIUM 4.2 mmol/L (3.5-5.1); TOTAL PROTEIN, SERUM 6.3 g/dL (6.0-8.3)
[2020-02-27] MEDS: LEVOTHYROXINE 100 MCG TABLET PO SCH (05:59)
[2020-02-27] MEDS: SENNOSIDES 8.6 MG TABLET PO SCH (08:18)
[2020-02-27] MEDS: ZINC SULFATE 220 CAPSULE PO SCH (08:18)
[2020-02-27] MEDS: DEXAMETHASONE SOD PHOSPHATE 4 MG/ML 1ML VIAL IVP SCH (08:18)
[2020-02-27] MEDS: ASCORBIC ACID 500 MG TAB PO SCH (08:18)
[2020-02-27] MEDS: POLYETHYLENE GLYCOL 3350 17 GM POWD.PACK PO SCH (08:19)
[2020-02-27] MEDS: DOCUSATE SODIUM 100 MG CAP PO SCH ×3 (08:19→21:00)
[2020-02-27] MEDS: ENOXAPARIN SODIUM 60 MG/0.6 ML SQ SCH ×2 (08:20→21:01)
[2020-02-27] MEDS: SODIUM CHLORIDE 45 ML SPRY NS SCH ×4 (08:21→21:00)
[2020-02-27] MEDS: LANSOPRAZOLE 15 MG SOLU TAB PEG SCH (08:27)
[2020-02-27] MEDS ORDERED: COMPOUND IV REFRIGERATED 1 EACH IVSOLN MISC PRN (12:00)
[2020-02-27] MEDS ORDERED: VANCOMYCIN PROTOCOL PER PHARMACY IV SCH ×3 (12:00→12:15)
[2020-02-27] MEDS ORDERED: VANCOMYCIN 0.75 GM in SODIUM CHLORIDE 0.9% 250 ML IV SCH (12:00)
[2020-02-27] MEDS ORDERED: MAGNESIUM CITRATE 296 ML SOLUTION PO PRN (12:15)
[2020-02-27] MEDS: ERYTHROMYCIN BASE 250 MG TABLET PO SCH ×2 (12:31→20:59)
[2020-02-27] MEDS: AZITHROMYCIN 500MG+NS 250ML 250 ML IV SCH (13:26)
[2020-02-27] MEDS: VANCOMYCIN 1.25 GM in SODIUM CHLORIDE 0.9% 250 ML IV SCH ×2 (16:00→23:15)
[2020-02-27] MEDS: INSULIN GLARGINE 100 UNITS/ML 10 ML VIAL SQ SCH (21:03)
[2020-02-28] VITALS (33 sets, daily range): BP systolic 98–163; BP diastolic 42–90
[2020-02-28] MEDS: CEFEPIME HCL 2 GM VIAL IVP SCH ×2 (02:10→12:50)
[2020-02-28] MEDS: PROPOFOL 1000 MG/100 ML 100 ML IV PRN ×5 (02:34→21:03)
[2020-02-28 03:35] LABS: ABG BASE EXCESS 9.3 mmol/L (-2.0-3.0); ABG HCO3 37.2 mmol/L (21.0-28.0); ABG OXYGEN SATURATION 86.5 % (95.0-99.0); ABG PCO2 64 mmHg (35-48)
[2020-02-28] MEDS: ERYTHROMYCIN BASE 250 MG TABLET PO SCH ×3 (04:54→20:47)
[2020-02-28] MEDS: ARTIFICAL TEARS SOL 15 ML OD SCH ×5 (04:55→20:47)
[2020-02-28] MEDS: INSULIN HUMULIN R 100 UNIT/ML 3ML SQ SCH ×3 (05:50→18:02)
[2020-02-28] MEDS: LEVOTHYROXINE 100 MCG TABLET PO SCH (06:16)
[2020-02-28 06:37] LABS: CREATININE 1.1 mg/dL (0.5-1.5); POTASSIUM 4.4 mmol/L (3.5-5.1)
[2020-02-28] MEDS: ASCORBIC ACID 500 MG TAB PO SCH (08:47)
[2020-02-28] MEDS: DOCUSATE SODIUM 100 MG CAP PO SCH ×3 (08:47→20:47)
[2020-02-28] MEDS: SENNOSIDES 8.6 MG TABLET PO SCH (08:47)
[2020-02-28] MEDS: POLYETHYLENE GLYCOL 3350 17 GM POWD.PACK PO SCH (08:47)
[2020-02-28] MEDS: DEXAMETHASONE SOD PHOSPHATE 4 MG/ML 1ML VIAL IVP SCH (08:47)
[2020-02-28] MEDS: ZINC SULFATE 220 CAPSULE PO SCH (08:47)
[2020-02-28] MEDS: SODIUM CHLORIDE 45 ML SPRY NS SCH ×4 (08:48→20:47)
[2020-02-28] MEDS: ENOXAPARIN SODIUM 60 MG/0.6 ML SQ SCH ×2 (08:48→20:50)
[2020-02-28] MEDS: VECURONIUM BROMIDE 50 MG in SODIUM CHLORIDE 0.9% 50 ML IV PRN ×2 (08:50→20:07)
[2020-02-28] MEDS: LANSOPRAZOLE 15 MG SOLU TAB PEG SCH (09:36)
[2020-02-28] MEDS: VANCOMYCIN 1.25 GM in SODIUM CHLORIDE 0.9% 250 ML IV SCH (11:47)
[2020-02-28] MEDS: AZITHROMYCIN 500MG+NS 250ML 250 ML IV SCH (12:50)
[2020-02-28] MEDS: FENTANYL 2500MCG+NS 250ML 250 ML IV SCH (15:02)
[2020-02-28] MEDS: METOPROLOL TARTRATE 25 MG TAB GT SCH (20:50)
[2020-02-28] MEDS: INSULIN GLARGINE 100 UNITS/ML 10 ML VIAL SQ SCH (20:52)
[2020-02-29] VITALS (50 sets, daily range): BP systolic 93–170; BP diastolic 51–87
[2020-02-29] MEDS: ARTIFICAL TEARS SOL 15 ML OD SCH ×7 (00:23→23:54)
[2020-02-29] MEDS: VANCOMYCIN 1.25 GM in SODIUM CHLORIDE 0.9% 250 ML IV SCH ×2 (00:24→13:09)
[2020-02-29] MEDS: INSULIN HUMULIN R 100 UNIT/ML 3ML SQ SCH ×4 (00:51→18:54)
[2020-02-29] MEDS: VECURONIUM BROMIDE 50 MG in SODIUM CHLORIDE 0.9% 50 ML IV PRN ×3 (02:45→15:17)
[2020-02-29] MEDS: CEFEPIME HCL 2 GM VIAL IVP SCH ×2 (02:46→12:43)
[2020-02-29] MEDS: PROPOFOL 1000 MG/100 ML 100 ML IV PRN ×3 (02:47→08:51)
[2020-02-29 03:52] LABS: ABG BASE EXCESS 9.7 mmol/L (-2.0-3.0); ABG HCO3 36.9 mmol/L (21.0-28.0); ABG OXYGEN SATURATION 97.5 % (95.0-99.0); ABG PCO2 60 mmHg (35-48)
[2020-02-29 04:39] LABS: BASOPHILS % (AUTO) 0.1 % (0.0-5.0); HEMATOCRIT 44.1 % (42-54); LYMPHOCYTES % (AUTO) 6.1 % (21.0-51.0); MEAN CORPUSCULAR HEMOGLOBIN 28.2 pg (27.0-33.0); MEAN CORPUSCULAR HGB CONC 31.1 g/dL (32.0-36.0); MEAN CORPUSCULAR VOLUME 90.7 fL (79-99); MONOCYTES % (AUTO) 13.1 % (3.0-13.0); NEUTROPHILS % (AUTO) 79.8 % (40.0-77.0); PLATELET COUNT (AUTO) 201 K/uL (130-400); RED BLOOD CELL COUNT(AUTO) 4.86 MIL/uL (4.50-6.20)
[2020-02-29] MEDS: ERYTHROMYCIN BASE 250 MG TABLET PO SCH ×3 (04:42→20:28)
[2020-02-29 05:17] LABS: ALBUMIN 1.9 g/dL (3.5-5.0); BILIRUBIN,TOTAL 0.6 mg/dL (0.2-1.0); MAGNESIUM 3.1 mg/dL (1.80-2.40); PHOSPHORUS 2.7 mg/dL (2.5-4.9); POTASSIUM 4.4 mmol/L (3.5-5.1); TOTAL PROTEIN, SERUM 6.1 g/dL (6.0-8.3)
[2020-02-29] MEDS: LEVOTHYROXINE 100 MCG TABLET PO SCH (06:06)
[2020-02-29] MEDS: DEXMEDETOMIDINE HCL 200 MCG in SODIUM CHLORIDE 0.9% 50 ML IV SCH ×3 (08:50→13:15)
[2020-02-29] MEDS: ASCORBIC ACID 500 MG TAB PO SCH (10:25)
[2020-02-29] MEDS: POLYETHYLENE GLYCOL 3350 17 GM POWD.PACK PO SCH (10:25)
[2020-02-29] MEDS: SODIUM CHLORIDE 45 ML SPRY NS SCH ×4 (10:25→20:29)
[2020-02-29] MEDS: LANSOPRAZOLE 15 MG SOLU TAB PEG SCH (10:25)
[2020-02-29] MEDS: METOPROLOL TARTRATE 25 MG TAB GT SCH ×2 (10:25→20:33)
[2020-02-29] MEDS: DEXAMETHASONE SOD PHOSPHATE 4 MG/ML 1ML VIAL IVP SCH (10:25)
[2020-02-29] MEDS: SENNOSIDES 8.6 MG TABLET PO SCH (10:25)
[2020-02-29] MEDS: ZINC SULFATE 220 CAPSULE PO SCH (10:26)
[2020-02-29] MEDS: ENOXAPARIN SODIUM 60 MG/0.6 ML SQ SCH ×2 (10:26→20:39)
[2020-02-29] MEDS: AZITHROMYCIN 500MG+NS 250ML 250 ML IV SCH (12:43)
[2020-02-29] MEDS: DEXMEDETOMIDINE HCL 400 MCG in SODIUM CHLORIDE 0.9% 100 ML IV SCH ×3 (16:57→23:54)
[2020-02-29] MEDS: ACETAMINOPHEN ELIXIR 325 MG/10.15ML UDCUP PO PRN (20:33)
[2020-02-29] MEDS: INSULIN GLARGINE 100 UNITS/ML 10 ML VIAL SQ SCH (20:36)
[2020-02-29] MEDS: DOCUSATE SODIUM 100 MG CAP PO SCH (21:00)
[2020-03-01] VITALS (77 sets, daily range): BP systolic 93–142; BP diastolic 48–81
[2020-03-01] MEDS: INSULIN HUMULIN R 100 UNIT/ML 3ML SQ SCH ×4 (00:27→17:52)
[2020-03-01] MEDS: CEFEPIME HCL 2 GM VIAL IVP SCH ×2 (01:27→13:07)
[2020-03-01] MEDS: VANCOMYCIN 1.25 GM in SODIUM CHLORIDE 0.9% 250 ML IV SCH ×2 (02:20→12:42)
[2020-03-01 03:55] LABS: ABG BASE EXCESS 10.4 mmol/L (-2.0-3.0); ABG HCO3 37.9 mmol/L (21.0-28.0); ABG OXYGEN SATURATION 84.6 % (95.0-99.0); ABG PCO2 62 mmHg (35-48)
[2020-03-01] MEDS: VECURONIUM BROMIDE 50 MG in SODIUM CHLORIDE 0.9% 50 ML IV PRN ×3 (04:16→20:36)
[2020-03-01] MEDS: ACETAMINOPHEN ELIXIR 325 MG/10.15ML UDCUP PO PRN (04:16)
[2020-03-01] MEDS: ERYTHROMYCIN BASE 250 MG TABLET PO SCH ×3 (04:16→20:40)
[2020-03-01] MEDS: DEXMEDETOMIDINE HCL 400 MCG in SODIUM CHLORIDE 0.9% 100 ML IV SCH ×4 (04:18→17:52)
[2020-03-01] MEDS: ARTIFICAL TEARS SOL 15 ML OD SCH ×5 (04:20→20:27)
[2020-03-01 04:37] LABS: ALBUMIN 0.9 g/dL (3.5-5.0); BILIRUBIN,TOTAL 2.1 mg/dL (0.2-1.0); CREATININE 0.9 mg/dL (0.5-1.5); MAGNESIUM 1.9 mg/dL (1.80-2.40); PHOSPHORUS 4.2 mg/dL (2.5-4.9)
[2020-03-01 06:17] LABS: BASOPHILS % (AUTO) 0.2 % (0.0-5.0); EOSINOPHILS % (AUTO) 0.7 % (0.0-8.0); HEMATOCRIT 46.8 % (42-54); LYMPHOCYTES % (AUTO) 7.2 % (21.0-51.0); MEAN CORPUSCULAR HEMOGLOBIN 28.8 pg (27.0-33.0); MEAN CORPUSCULAR VOLUME 92.9 fL (79-99); MONOCYTES % (AUTO) 9.2 % (3.0-13.0); NEUTROPHILS % (AUTO) 82.2 % (40.0-77.0); NUCLEATED RED BLOOD CELLS 0.3 % (0.0-0.19); PLATELET COUNT (AUTO) 155 K/uL (130-400); RED BLOOD CELL COUNT(AUTO) 5.04 MIL/uL (4.50-6.20); RED CELL DISTRIBUTION WIDTH 14.2 % (11.0-15.5); WHITE BLOOD COUNT (AUTO) 13.5 K/uL (4.8-10.8)
[2020-03-01] MEDS: LEVOTHYROXINE 100 MCG TABLET PO SCH (06:27)
[2020-03-01 06:31] LABS: POTASSIUM 5.6 mmol/L (3.5-5.1)
[2020-03-01] MEDS ORDERED: PHARMACY COMMUNICATION MISC SCH ×3 (08:00→18:15)
[2020-03-01] MEDS: ENOXAPARIN SODIUM 60 MG/0.6 ML SQ SCH ×2 (08:32→20:31)
[2020-03-01] MEDS: ASCORBIC ACID 500 MG TAB PO SCH (08:33)
[2020-03-01] MEDS: DOCUSATE SODIUM 100 MG CAP PO SCH ×3 (08:33→20:29)
[2020-03-01] MEDS: SENNOSIDES 8.6 MG TABLET PO SCH (08:33)
[2020-03-01] MEDS: ZINC SULFATE 220 CAPSULE PO SCH (08:33)
[2020-03-01] MEDS: POLYETHYLENE GLYCOL 3350 17 GM POWD.PACK PO SCH (08:33)
[2020-03-01] MEDS: DEXAMETHASONE SOD PHOSPHATE 4 MG/ML 1ML VIAL IVP SCH (08:34)
[2020-03-01] MEDS: SODIUM CHLORIDE 45 ML SPRY NS SCH ×4 (08:35→21:41)
[2020-03-01] MEDS: LANSOPRAZOLE 15 MG SOLU TAB PEG SCH (08:35)
[2020-03-01] MEDS: METOPROLOL TARTRATE 25 MG TAB GT SCH ×2 (08:36→20:28)
[2020-03-01] MEDS ORDERED: FUROSEMIDE 10 MG/ML 10ML VIAL IVP SCH (11:12)
[2020-03-01] MEDS: AZITHROMYCIN 500MG+NS 250ML 250 ML IV SCH (13:07)
[2020-03-01] MEDS: ALBUMIN (HUMAN) 25% 50 ML IV SCH (20:27)
[2020-03-01] MEDS: INSULIN GLARGINE 100 UNITS/ML 10 ML VIAL SQ SCH (20:33)
[2020-03-01] MEDS: FUROSEMIDE 10 MG/ML 10ML VIAL IVP SCH (21:51)
[2020-03-02] VITALS (46 sets, daily range): BP systolic 85–158; BP diastolic 53–88
[2020-03-02] MEDS: DEXAMETHASONE SOD PHOSPHATE 4 MG/ML 1ML VIAL IVP SCH (00:40)
[2020-03-02] MEDS: CEFEPIME HCL 2 GM VIAL IVP SCH ×2 (01:06→12:50)
[2020-03-02] MEDS: INSULIN HUMULIN R 100 UNIT/ML 3ML SQ SCH ×4 (01:06→17:30)
[2020-03-02] MEDS: VANCOMYCIN 1.25 GM in SODIUM CHLORIDE 0.9% 250 ML IV SCH ×2 (01:30→11:45)
[2020-03-02] MEDS: ARTIFICAL TEARS SOL 15 ML OD SCH ×6 (01:30→20:59)
[2020-03-02 03:46] LABS: ABG BASE EXCESS 8.2 mmol/L (-2.0-3.0); ABG HCO3 33.4 mmol/L (21.0-28.0); ABG OXYGEN SATURATION 87.1 % (95.0-99.0); ABG PCO2 48 mmHg (35-48)
[2020-03-02] MEDS: ALBUMIN (HUMAN) 25% 50 ML IV SCH ×2 (04:00→11:44)
[2020-03-02] MEDS: ERYTHROMYCIN BASE 250 MG TABLET PO SCH (04:00)
[2020-03-02 05:10] LABS: MAGNESIUM 3.2 mg/dL (1.80-2.40)
[2020-03-02] MEDS: FUROSEMIDE 10 MG/ML 10ML VIAL IVP SCH ×2 (06:10→13:25)
[2020-03-02] MEDS: LEVOTHYROXINE 100 MCG TABLET PO SCH (06:37)
[2020-03-02] MEDS: POLYETHYLENE GLYCOL 3350 17 GM POWD.PACK PO SCH (09:10)
[2020-03-02] MEDS: DOCUSATE SODIUM 100 MG CAP PO SCH ×3 (09:10→21:00)
[2020-03-02] MEDS: SENNOSIDES 8.6 MG TABLET PO SCH (09:11)
[2020-03-02] MEDS: ASCORBIC ACID 500 MG TAB PO SCH (09:11)
[2020-03-02] MEDS: LANSOPRAZOLE 15 MG SOLU TAB PEG SCH (09:11)
[2020-03-02] MEDS: METOPROLOL TARTRATE 25 MG TAB GT SCH ×2 (09:11→21:00)
[2020-03-02] MEDS: ZINC SULFATE 220 CAPSULE PO SCH (09:11)
[2020-03-02] MEDS: ENOXAPARIN SODIUM 60 MG/0.6 ML SQ SCH ×2 (09:13→21:07)
[2020-03-02] MEDS: SODIUM CHLORIDE 45 ML SPRY NS SCH ×4 (09:36→20:59)
[2020-03-02 09:39] LABS: MEAN CORPUSCULAR HEMOGLOBIN 28.5 pg (27.0-33.0); MEAN CORPUSCULAR HGB CONC 30.5 g/dL (32.0-36.0); MEAN CORPUSCULAR VOLUME 93.7 fL (79-99); PLATELET COUNT (AUTO) 108 K/uL (130-400); RED BLOOD CELL COUNT(AUTO) 4.59 MIL/uL (4.50-6.20); RED CELL DISTRIBUTION WIDTH 14.4 % (11.0-15.5); WHITE BLOOD COUNT (AUTO) 12.2 K/uL (4.8-10.8)
[2020-03-02 10:12] LABS: POTASSIUM 5.1 mmol/L (3.5-5.1)
[2020-03-02] MEDS: FENTANYL 2500MCG+NS 250ML 250 ML IV SCH (10:24)
[2020-03-02] MEDS: ACETAMINOPHEN ELIXIR 325 MG/10.15ML UDCUP PO PRN (10:38)
[2020-03-02 11:05] LABS: ALBUMIN 2.4 g/dL (3.5-5.0); BILIRUBIN,TOTAL 0.7 mg/dL (0.2-1.0); CREATININE 1.3 mg/dL (0.5-1.5); TOTAL PROTEIN, SERUM 6.2 g/dL (6.0-8.3)
[2020-03-02] MEDS: AZITHROMYCIN 500MG+NS 250ML 250 ML IV SCH (12:51)
[2020-03-02] MEDS: VECURONIUM BROMIDE 50 MG in SODIUM CHLORIDE 0.9% 50 ML IV PRN (13:53)
[2020-03-02] MEDS: DEXMEDETOMIDINE HCL 400 MCG in SODIUM CHLORIDE 0.9% 100 ML IV SCH ×2 (15:55→21:04)
[2020-03-02] MEDS: INSULIN GLARGINE 100 UNITS/ML 10 ML VIAL SQ SCH (21:41)
[2020-03-03] VITALS (24 sets, daily range): BP systolic 113–160; BP diastolic 56–89
[2020-03-03] MEDS: INSULIN HUMULIN R 100 UNIT/ML 3ML SQ SCH ×4 (00:15→18:11)
[2020-03-03] MEDS: ARTIFICAL TEARS SOL 15 ML OD SCH ×6 (00:16→20:55)
[2020-03-03] MEDS: VANCOMYCIN 1.25 GM in SODIUM CHLORIDE 0.9% 250 ML IV SCH ×2 (00:47→12:19)
[2020-03-03] MEDS: CEFEPIME HCL 2 GM VIAL IVP SCH ×2 (00:47→12:50)
[2020-03-03] MEDS: DEXMEDETOMIDINE HCL 400 MCG in SODIUM CHLORIDE 0.9% 100 ML IV SCH ×3 (02:44→16:22)
[2020-03-03] MEDS: VECURONIUM BROMIDE 50 MG in SODIUM CHLORIDE 0.9% 50 ML IV PRN ×3 (02:47→23:47)
[2020-03-03 03:38] LABS: ABG BASE EXCESS 8.1 mmol/L (-2.0-3.0); ABG HCO3 33.9 mmol/L (21.0-28.0); ABG PCO2 51 mmHg (35-48)
[2020-03-03 06:05] LABS: BASOPHILS % (AUTO) 0.1 % (0.0-5.0); EOSINOPHILS % (AUTO) 1.7 % (0.0-8.0); HEMATOCRIT 41.1 % (42-54); LYMPHOCYTES % (AUTO) 4.9 % (21.0-51.0); MEAN CORPUSCULAR HEMOGLOBIN 28.6 pg (27.0-33.0); MEAN CORPUSCULAR HGB CONC 31.6 g/dL (32.0-36.0); MEAN CORPUSCULAR VOLUME 90.3 fL (79-99); MONOCYTES % (AUTO) 4.9 % (3.0-13.0); NEUTROPHILS % (AUTO) 87.9 % (40.0-77.0); PLATELET COUNT (AUTO) 105 K/uL (130-400); RED BLOOD CELL COUNT(AUTO) 4.55 MIL/uL (4.50-6.20); RED CELL DISTRIBUTION WIDTH 14.3 % (11.0-15.5); WHITE BLOOD COUNT (AUTO) 16.6 K/uL (4.8-10.8)
[2020-03-03] MEDS: LEVOTHYROXINE 100 MCG TABLET PO SCH (06:07)
[2020-03-03 06:17] LABS: ALBUMIN 2.4 g/dL (3.5-5.0); CREATININE 0.8 mg/dL (0.5-1.5); MAGNESIUM 2.8 mg/dL (1.80-2.40); PHOSPHORUS 2.7 mg/dL (2.5-4.9); POTASSIUM 3.9 mmol/L (3.5-5.1)
[2020-03-03] MEDS: ACETAMINOPHEN ELIXIR 325 MG/10.15ML UDCUP PO PRN (08:30)
[2020-03-03] MEDS: POLYETHYLENE GLYCOL 3350 17 GM POWD.PACK PO SCH (08:36)
[2020-03-03] MEDS: ENOXAPARIN SODIUM 60 MG/0.6 ML SQ SCH ×2 (08:36→20:54)
[2020-03-03] MEDS: DOCUSATE SODIUM 100 MG CAP PO SCH ×2 (08:36→13:01)
[2020-03-03] MEDS: ASCORBIC ACID 500 MG TAB PO SCH (08:36)
[2020-03-03] MEDS: DEXAMETHASONE SOD PHOSPHATE 4 MG/ML 1ML VIAL IVP SCH (08:37)
[2020-03-03] MEDS: SODIUM CHLORIDE 45 ML SPRY NS SCH ×4 (08:37→20:55)
[2020-03-03] MEDS: SENNOSIDES 8.6 MG TABLET PO SCH (08:37)
[2020-03-03] MEDS: ZINC SULFATE 220 CAPSULE PO SCH (08:37)
[2020-03-03] MEDS: METOPROLOL TARTRATE 25 MG TAB GT SCH ×2 (08:37→20:53)
[2020-03-03] MEDS: LANSOPRAZOLE 15 MG SOLU TAB PEG SCH (08:37)
[2020-03-03] MEDS: FENTANYL 2500MCG+NS 250ML 250 ML IV SCH (12:49)
[2020-03-03] MEDS: DOCUSATE NA 100MG/10ML UDCUP PO SCH (20:53)
[2020-03-03] MEDS: INSULIN GLARGINE 100 UNITS/ML 10 ML VIAL SQ SCH (21:41)
[2020-03-04] VITALS (26 sets, daily range): BP systolic 101–156; BP diastolic 54–92
[2020-03-04] MEDS: DEXMEDETOMIDINE HCL 400 MCG in SODIUM CHLORIDE 0.9% 100 ML IV SCH ×3 (00:03→09:15)
[2020-03-04] MEDS: VANCOMYCIN 1.25 GM in SODIUM CHLORIDE 0.9% 250 ML IV SCH ×2 (00:40→12:46)
[2020-03-04] MEDS: ARTIFICAL TEARS SOL 15 ML OD SCH ×6 (00:41→21:10)
[2020-03-04] MEDS: INSULIN HUMULIN R 100 UNIT/ML 3ML SQ SCH ×4 (01:29→17:46)
[2020-03-04] MEDS: CEFEPIME HCL 2 GM VIAL IVP SCH ×2 (01:43→12:45)
[2020-03-04 03:33] LABS: ABG BASE EXCESS 8.5 mmol/L (-2.0-3.0); ABG HCO3 36.1 mmol/L (21.0-28.0); ABG OXYGEN SATURATION 90.4 % (95.0-99.0); ABG PCO2 62 mmHg (35-48)
[2020-03-04 06:12] LABS: BASOPHILS % (AUTO) 0.1 % (0.0-5.0); EOSINOPHILS % (AUTO) 0.5 % (0.0-8.0); HEMATOCRIT 43.9 % (42-54); LYMPHOCYTES % (AUTO) 4.1 % (21.0-51.0); MEAN CORPUSCULAR HEMOGLOBIN 28.5 pg (27.0-33.0); MEAN CORPUSCULAR HGB CONC 30.5 g/dL (32.0-36.0); MEAN CORPUSCULAR VOLUME 93.2 fL (79-99); MONOCYTES % (AUTO) 5.7 % (3.0-13.0); PLATELET COUNT (AUTO) 106 K/uL (130-400); RED BLOOD CELL COUNT(AUTO) 4.71 MIL/uL (4.50-6.20); RED CELL DISTRIBUTION WIDTH 14.3 % (11.0-15.5); WHITE BLOOD COUNT (AUTO) 13.8 K/uL (4.8-10.8)
[2020-03-04 06:22] LABS: CREATININE 0.9 mg/dL (0.5-1.5); CRP QUANTITATIVE 33.7 mg/L (0.00-9.0); POTASSIUM 4.6 mmol/L (3.5-5.1)
[2020-03-04] MEDS: LEVOTHYROXINE 100 MCG TABLET PO SCH (06:31)
[2020-03-04 06:53] LABS: B-TYPE NATRIURETIC PEPTIDE 112 pg/mL (0-100)
[2020-03-04] MEDS: ASCORBIC ACID 500 MG TAB PO SCH (08:32)
[2020-03-04] MEDS: DOCUSATE NA 100MG/10ML UDCUP PO SCH ×2 (08:32→21:43)
[2020-03-04] MEDS: ZINC SULFATE 220 CAPSULE PO SCH (08:32)
[2020-03-04] MEDS: POLYETHYLENE GLYCOL 3350 17 GM POWD.PACK PO SCH (08:32)
[2020-03-04] MEDS: SENNOSIDES 8.6 MG TABLET PO SCH (08:32)
[2020-03-04] MEDS: LACTULOSE 20 GM/30 ML UDCUP PO SCH (08:32)
[2020-03-04] MEDS: LANSOPRAZOLE 15 MG SOLU TAB PEG SCH (08:32)
[2020-03-04] MEDS: METOPROLOL TARTRATE 25 MG TAB GT SCH ×2 (08:32→21:43)
[2020-03-04] MEDS: ENOXAPARIN SODIUM 60 MG/0.6 ML SQ SCH (08:33)
[2020-03-04] MEDS: SODIUM CHLORIDE 45 ML SPRY NS SCH ×4 (08:33→21:10)
[2020-03-04] MEDS: VECURONIUM BROMIDE 50 MG in SODIUM CHLORIDE 0.9% 50 ML IV PRN ×2 (09:15→21:11)
[2020-03-04 10:31] LABS: INR 1.07 (0.85-1.15); PROTHROMBIN TIME 11.4 SEC (9.6-11.6)
[2020-03-04] MEDS: FENTANYL 2500MCG+NS 250ML 250 ML IV SCH (17:14)
[2020-03-04] MEDS: INSULIN GLARGINE 100 UNITS/ML 10 ML VIAL SQ SCH ×2 (22:16→22:18)
[2020-03-05] VITALS (23 sets, daily range): BP systolic 113–162; BP diastolic 44–81
[2020-03-05] MEDS: ARTIFICAL TEARS SOL 15 ML OD SCH ×7 (00:39→23:55)
[2020-03-05] MEDS: VANCOMYCIN 1.25 GM in SODIUM CHLORIDE 0.9% 250 ML IV SCH ×3 (00:44→23:54)
[2020-03-05] MEDS: CEFEPIME HCL 2 GM VIAL IVP SCH ×2 (01:55→12:45)
[2020-03-05] MEDS: DEXMEDETOMIDINE HCL 400 MCG in SODIUM CHLORIDE 0.9% 100 ML IV SCH ×3 (04:09→16:25)
[2020-03-05] MEDS: VECURONIUM BROMIDE 50 MG in SODIUM CHLORIDE 0.9% 50 ML IV PRN ×3 (04:10→16:21)
[2020-03-05 04:24] LABS: ABG BASE EXCESS 8.3 mmol/L (-2.0-3.0); ABG HCO3 37.8 mmol/L (21.0-28.0); ABG OXYGEN SATURATION 96.7 % (95.0-99.0); ABG PCO2 76 mmHg (35-48)
[2020-03-05 05:40] LABS: BASOPHILS % (AUTO) 0.1 % (0.0-5.0); EOSINOPHILS % (AUTO) 2.3 % (0.0-8.0); HEMATOCRIT 40.8 % (42-54); LYMPHOCYTES % (AUTO) 6.4 % (21.0-51.0); MEAN CORPUSCULAR HEMOGLOBIN 28.3 pg (27.0-33.0); MEAN CORPUSCULAR HGB CONC 29.7 g/dL (32.0-36.0); MEAN CORPUSCULAR VOLUME 95.6 fL (79-99); PLATELET COUNT (AUTO) 109 K/uL (130-400); RED BLOOD CELL COUNT(AUTO) 4.27 MIL/uL (4.50-6.20); RED CELL DISTRIBUTION WIDTH 14.6 % (11.0-15.5); WHITE BLOOD COUNT (AUTO) 12.1 K/uL (4.8-10.8)
[2020-03-05] MEDS: INSULIN HUMULIN R 100 UNIT/ML 3ML SQ SCH ×5 (06:00→23:56)
[2020-03-05 06:04] LABS: ALBUMIN 2.1 g/dL (3.5-5.0); CREATININE 0.8 mg/dL (0.5-1.5); CRP QUANTITATIVE 38.7 mg/L (0.00-9.0); POTASSIUM 4.4 mmol/L (3.5-5.1)
[2020-03-05] MEDS: LEVOTHYROXINE 100 MCG TABLET PO SCH (06:24)
[2020-03-05] MEDS: SODIUM CHLORIDE 45 ML SPRY NS SCH ×4 (07:34→20:18)
[2020-03-05] MEDS: LACTULOSE 20 GM/30 ML UDCUP PO SCH (08:53)
[2020-03-05] MEDS: SENNOSIDES 8.6 MG TABLET PO SCH (08:54)
[2020-03-05] MEDS: POLYETHYLENE GLYCOL 3350 17 GM POWD.PACK PO SCH (08:54)
[2020-03-05] MEDS: DOCUSATE NA 100MG/10ML UDCUP PO SCH ×2 (08:54→20:18)
[2020-03-05] MEDS: ASCORBIC ACID 500 MG TAB PO SCH (08:54)
[2020-03-05] MEDS: ZINC SULFATE 220 CAPSULE PO SCH (08:54)
[2020-03-05] MEDS: METOPROLOL TARTRATE 25 MG TAB GT SCH ×2 (08:54→20:18)
[2020-03-05] MEDS: LANSOPRAZOLE 15 MG SOLU TAB PEG SCH (08:54)
[2020-03-05] MEDS: FENTANYL 2500MCG+NS 250ML 250 ML IV SCH (17:49)
[2020-03-05] MEDS: INSULIN GLARGINE 100 UNITS/ML 10 ML VIAL SQ SCH ×2 (20:58→20:59)
[2020-03-05] MEDS: ENOXAPARIN SODIUM 60 MG/0.6 ML SQ SCH (21:00)
[2020-03-05] MEDS ORDERED: ENOXAPARIN SODIUM 30 MG/0.3 ML SQ SCH (21:00)
[2020-03-05] MEDS ORDERED: ENOXAPARIN SODIUM 60 MG/0.6 ML SQ ONE (21:40)
[2020-03-06] VITALS (27 sets, daily range): BP systolic 108–164; BP diastolic 56–81
[2020-03-06] MEDS: CEFEPIME HCL 2 GM VIAL IVP SCH ×3 (02:27→23:53)
[2020-03-06 03:53] LABS: ABG BASE EXCESS 6.5 mmol/L (-2.0-3.0); ABG HCO3 34.7 mmol/L (21.0-28.0); ABG OXYGEN SATURATION 90.6 % (95.0-99.0); ABG PCO2 66 mmHg (35-48)
[2020-03-06 04:23] LABS: BASOPHILS % (AUTO) 0.2 % (0.0-5.0); EOSINOPHILS % (AUTO) 1.8 % (0.0-8.0); HEMATOCRIT 40.8 % (42-54); LYMPHOCYTES % (AUTO) 4.5 % (21.0-51.0); MEAN CORPUSCULAR HEMOGLOBIN 28.7 pg (27.0-33.0); MEAN CORPUSCULAR HGB CONC 29.7 g/dL (32.0-36.0); MEAN CORPUSCULAR VOLUME 96.9 fL (79-99); NEUTROPHILS % (AUTO) 87.5 % (40.0-77.0); PLATELET COUNT (AUTO) 95 K/uL (130-400); RED BLOOD CELL COUNT(AUTO) 4.21 MIL/uL (4.50-6.20); RED CELL DISTRIBUTION WIDTH 14.6 % (11.0-15.5); WHITE BLOOD COUNT (AUTO) 11.4 K/uL (4.8-10.8)
[2020-03-06] MEDS: ARTIFICAL TEARS SOL 15 ML OD SCH ×5 (04:36→21:42)
[2020-03-06 04:39] LABS: ALBUMIN 2.1 g/dL (3.5-5.0); BILIRUBIN,TOTAL 0.9 mg/dL (0.2-1.0); CREATININE 0.8 mg/dL (0.5-1.5); CRP QUANTITATIVE 52.6 mg/L (0.00-9.0); MAGNESIUM 3.1 mg/dL (1.80-2.40); PHOSPHORUS 2.7 mg/dL (2.5-4.9); POTASSIUM 4.5 mmol/L (3.5-5.1); TOTAL PROTEIN, SERUM 6.1 g/dL (6.0-8.3)
[2020-03-06] MEDS: INSULIN HUMULIN R 100 UNIT/ML 3ML SQ SCH ×3 (06:18→17:42)
[2020-03-06] MEDS: LEVOTHYROXINE 100 MCG TABLET PO SCH (06:18)
[2020-03-06] MEDS: VECURONIUM BROMIDE 50 MG in SODIUM CHLORIDE 0.9% 50 ML IV PRN ×3 (06:43→23:53)
[2020-03-06] MEDS: ASCORBIC ACID 500 MG TAB PO SCH (08:21)
[2020-03-06] MEDS: POLYETHYLENE GLYCOL 3350 17 GM POWD.PACK PO SCH (08:21)
[2020-03-06] MEDS: SENNOSIDES 8.6 MG TABLET PO SCH (08:21)
[2020-03-06] MEDS: ZINC SULFATE 220 CAPSULE PO SCH (08:21)
[2020-03-06] MEDS: METOPROLOL TARTRATE 25 MG TAB GT SCH ×2 (08:21→21:27)
[2020-03-06] MEDS: LANSOPRAZOLE 15 MG SOLU TAB PEG SCH (08:21)
[2020-03-06] MEDS: DOCUSATE NA 100MG/10ML UDCUP PO SCH ×4 (08:22→21:26)
[2020-03-06] MEDS: SODIUM CHLORIDE 45 ML SPRY NS SCH ×4 (08:22→21:42)
[2020-03-06] MEDS: LACTULOSE 20 GM/30 ML UDCUP PO SCH ×3 (08:22→21:27)
[2020-03-06] MEDS ORDERED: ENOXAPARIN SODIUM 60 MG/0.6 ML SQ ONE ×2 (08:51→21:38)
[2020-03-06] MEDS: ENOXAPARIN SODIUM 60 MG/0.6 ML SQ SCH ×2 (08:54→21:44)
[2020-03-06] MEDS: DEXMEDETOMIDINE HCL 400 MCG in SODIUM CHLORIDE 0.9% 100 ML IV SCH ×2 (09:12→16:59)
[2020-03-06] MEDS: VANCOMYCIN 1.25 GM in SODIUM CHLORIDE 0.9% 250 ML IV SCH ×2 (12:08→23:54)
[2020-03-06] MEDS ORDERED: LUBIPROSTONE 24 MCG CAP PO SCH (15:15)
[2020-03-06] MEDS ORDERED: ALBUMIN (HUMAN) 25% 50 ML IV SCH ×2 (16:30→17:15)
[2020-03-06] MEDS: LUBIPROSTONE 24 MCG CAP PO SCH (16:57)
[2020-03-06] MEDS: FENTANYL 2500MCG+NS 250ML 250 ML IV SCH (16:58)
[2020-03-06] MEDS: FUROSEMIDE 10 MG/ML 2ML VIAL IV SCH (17:06)
[2020-03-06] MEDS: INSULIN GLARGINE 100 UNITS/ML 10 ML VIAL SQ SCH ×2 (21:29→21:31)
[2020-03-06] MEDS ORDERED: VECURONIUM BROMIDE 10 MG ML IV ONE (23:26)
[2020-03-07] VITALS (36 sets, daily range): BP systolic 117–156; BP diastolic 62–87
[2020-03-07] MEDS: INSULIN HUMULIN R 100 UNIT/ML 3ML SQ SCH ×4 (00:09→16:44)
[2020-03-07] MEDS: ARTIFICAL TEARS SOL 15 ML OD SCH ×6 (00:09→20:00)
[2020-03-07] MEDS: DEXMEDETOMIDINE HCL 400 MCG in SODIUM CHLORIDE 0.9% 100 ML IV SCH ×2 (01:17→22:45)
[2020-03-07] MEDS: FUROSEMIDE 10 MG/ML 2ML VIAL IV SCH (04:31)
[2020-03-07 05:47] LABS: ALBUMIN 2.2 g/dL (3.5-5.0); BILIRUBIN,TOTAL 0.8 mg/dL (0.2-1.0); CREATININE 0.7 mg/dL (0.5-1.5); POTASSIUM 3.9 mmol/L (3.5-5.1); TOTAL PROTEIN, SERUM 6.2 g/dL (6.0-8.3)
[2020-03-07] MEDS: LEVOTHYROXINE 100 MCG TABLET PO SCH (06:31)
[2020-03-07] MEDS: LUBIPROSTONE 24 MCG CAP PO SCH ×2 (08:01→16:51)
[2020-03-07] MEDS: ASCORBIC ACID 500 MG TAB PO SCH (08:02)
[2020-03-07] MEDS: LACTULOSE 20 GM/30 ML UDCUP PO SCH (08:02)
[2020-03-07] MEDS: METOPROLOL TARTRATE 25 MG TAB GT SCH ×2 (08:02→20:59)
[2020-03-07] MEDS: ZINC SULFATE 220 CAPSULE PO SCH (08:02)
[2020-03-07] MEDS: POLYETHYLENE GLYCOL 3350 17 GM POWD.PACK PO SCH (08:02)
[2020-03-07] MEDS: SENNOSIDES 8.6 MG TABLET PO SCH (08:02)
[2020-03-07] MEDS: DOCUSATE NA 100MG/10ML UDCUP PO SCH (08:03)
[2020-03-07] MEDS: SODIUM CHLORIDE 45 ML SPRY NS SCH ×4 (08:08→21:00)
[2020-03-07] MEDS: LANSOPRAZOLE 15 MG SOLU TAB PEG SCH (08:20)
[2020-03-07] MEDS: ENOXAPARIN SODIUM 60 MG/0.6 ML SQ SCH ×2 (08:48→21:00)
[2020-03-07] MEDS: VECURONIUM BROMIDE 50 MG in SODIUM CHLORIDE 0.9% 50 ML IV PRN ×2 (09:46→16:51)
[2020-03-07] MEDS ORDERED: MAGNESIUM 2GM PREMIX 50ML 50 ML IV SCH (10:00)
[2020-03-07] MEDS ORDERED: POTASSIUM CHLORIDE 10MEQ/100ML 10 MEQ/100 ML ML IV SCH (10:00)
[2020-03-07] MEDS: CEFEPIME HCL 2 GM VIAL IVP SCH (12:06)
[2020-03-07] MEDS ORDERED: POTASSIUM CHLORIDE 20MEQ/100ML 100 ML IV SCH (12:45)
[2020-03-07] MEDS: VANCOMYCIN 1.25 GM in SODIUM CHLORIDE 0.9% 250 ML IV SCH (13:10)
[2020-03-07] MEDS ORDERED: FUROSEMIDE 10 MG/ML 2ML VIAL IV SCH (14:30)
[2020-03-07] MEDS ORDERED: FENTANYL 2500MCG+NS 250ML 250 ML IV ONE (20:25)
[2020-03-07] MEDS ORDERED: ENOXAPARIN SODIUM 60 MG/0.6 ML SQ ONE (20:53)
[2020-03-07] MEDS: INSULIN GLARGINE 100 UNITS/ML 10 ML VIAL SQ SCH ×2 (21:00→21:06)
[2020-03-08] VITALS (46 sets, daily range): BP systolic 114–173; BP diastolic 58–88
[2020-03-08] MEDS: CEFEPIME HCL 2 GM VIAL IVP SCH ×2 (00:03→12:15)
[2020-03-08] MEDS: INSULIN HUMULIN R 100 UNIT/ML 3ML SQ SCH ×4 (00:06→17:47)
[2020-03-08] MEDS: VANCOMYCIN 1.25 GM in SODIUM CHLORIDE 0.9% 250 ML IV SCH ×2 (00:31→12:15)
[2020-03-08 03:50] LABS: ABG BASE EXCESS 11.3 mmol/L (-2.0-3.0); ABG HCO3 38.9 mmol/L (21.0-28.0); ABG OXYGEN SATURATION 91.1 % (95.0-99.0); ABG PCO2 63 mmHg (35-48)
[2020-03-08] MEDS: ARTIFICAL TEARS SOL 15 ML OD SCH ×6 (04:00→20:00)
[2020-03-08] MEDS: LEVOTHYROXINE 100 MCG TABLET PO SCH (05:58)
[2020-03-08 06:13] LABS: BILIRUBIN,TOTAL 0.7 mg/dL (0.2-1.0); CREATININE 0.8 mg/dL (0.5-1.5); POTASSIUM 3.8 mmol/L (3.5-5.1); TOTAL PROTEIN, SERUM 5.9 g/dL (6.0-8.3)
[2020-03-08] MEDS: VECURONIUM BROMIDE 50 MG in SODIUM CHLORIDE 0.9% 50 ML IV PRN ×3 (06:35→20:52)
[2020-03-08 07:22] LABS: BASOPHILS % (AUTO) 0.2 % (0.0-5.0); HEMATOCRIT 38.4 % (42-54); LYMPHOCYTES % (AUTO) 5.8 % (21.0-51.0); MEAN CORPUSCULAR HEMOGLOBIN 28.9 pg (27.0-33.0); MEAN CORPUSCULAR HGB CONC 30.7 g/dL (32.0-36.0); MEAN CORPUSCULAR VOLUME 94.1 fL (79-99); MONOCYTES % (AUTO) 4.4 % (3.0-13.0); NEUTROPHILS % (AUTO) 85.7 % (40.0-77.0); PLATELET COUNT (AUTO) 98 K/uL (130-400); RED BLOOD CELL COUNT(AUTO) 4.08 MIL/uL (4.50-6.20); RED CELL DISTRIBUTION WIDTH 15.1 % (11.0-15.5); WHITE BLOOD COUNT (AUTO) 9.1 K/uL (4.8-10.8)
[2020-03-08] MEDS: METOPROLOL TARTRATE 25 MG TAB GT SCH ×2 (07:39→22:04)
[2020-03-08] MEDS: LUBIPROSTONE 24 MCG CAP PO SCH ×2 (07:39→16:37)
[2020-03-08] MEDS: ASCORBIC ACID 500 MG TAB PO SCH (07:39)
[2020-03-08] MEDS: ZINC SULFATE 220 CAPSULE PO SCH (07:39)
[2020-03-08] MEDS: POTASSIUM CHLORIDE 10% ELIXIR 20 MEQ/15 ML UDCUP PO PRN ×2 (07:40→11:40)
[2020-03-08] MEDS: SODIUM CHLORIDE 45 ML SPRY NS SCH ×4 (07:41→21:00)
[2020-03-08] MEDS: DEXMEDETOMIDINE HCL 400 MCG in SODIUM CHLORIDE 0.9% 100 ML IV SCH ×2 (07:43→22:04)
[2020-03-08] MEDS: ENOXAPARIN SODIUM 60 MG/0.6 ML SQ SCH (08:59)
[2020-03-08] MEDS ORDERED: DOCUSATE NA 100MG/10ML UDCUP PO PRN (09:00)
[2020-03-08] MEDS ORDERED: SENNOSIDES 8.6 MG TABLET PO PRN (09:00)
[2020-03-08] MEDS: LANSOPRAZOLE 15 MG SOLU TAB PEG SCH (09:29)
[2020-03-08] MEDS ORDERED: LACTULOSE 20 GM/30 ML UDCUP PO PRN (11:27)
[2020-03-08] MEDS ORDERED: POLYETHYLENE GLYCOL 3350 17 GM POWD.PACK PO PRN (11:45)
[2020-03-08] MEDS: ACETAMINOPHEN ELIXIR 325 MG/10.15ML UDCUP PO PRN (12:16)
[2020-03-08] MEDS: INSULIN GLARGINE 100 UNITS/ML 10 ML VIAL SQ SCH ×2 (21:00→22:11)
[2020-03-08] MEDS ORDERED: ACETAZOLAMIDE SODIUM 500 MG VIAL IV SCH (21:20)
[2020-03-08] MEDS ORDERED: FENTANYL 2500MCG+NS 250ML 250 ML IV ONE (21:46)
[2020-03-08] MEDS: ENOXAPARIN SODIUM 30 MG/0.3 ML SQ SCH (22:03)
[2020-03-08] MEDS: FUROSEMIDE 10 MG/ML 2ML VIAL IV SCH (22:05)
[2020-03-09] VITALS (46 sets, daily range): BP systolic 88–170; BP diastolic 41–89
[2020-03-09] MEDS: CEFEPIME HCL 2 GM VIAL IVP SCH ×2 (01:16→14:48)
[2020-03-09] MEDS: ARTIFICAL TEARS SOL 15 ML OD SCH ×6 (04:00→20:00)
[2020-03-09 04:08] LABS: ABG BASE EXCESS 6.4 mmol/L (-2.0-3.0); ABG HCO3 33.8 mmol/L (21.0-28.0); ABG OXYGEN SATURATION 91.8 % (95.0-99.0); ABG PCO2 60 mmHg (35-48)
[2020-03-09] MEDS: FUROSEMIDE 10 MG/ML 2ML VIAL IV SCH ×3 (04:15→21:44)
[2020-03-09 04:51] LABS: BASOPHILS % (AUTO) 0.2 % (0.0-5.0); EOSINOPHILS % (AUTO) 3.1 % (0.0-8.0); HEMATOCRIT 38.1 % (42-54); LYMPHOCYTES % (AUTO) 7.2 % (21.0-51.0); MEAN CORPUSCULAR HEMOGLOBIN 28.9 pg (27.0-33.0); MEAN CORPUSCULAR HGB CONC 30.4 g/dL (32.0-36.0); MEAN CORPUSCULAR VOLUME 94.8 fL (79-99); MONOCYTES % (AUTO) 3.6 % (3.0-13.0); NEUTROPHILS % (AUTO) 84.3 % (40.0-77.0); PLATELET COUNT (AUTO) 95 K/uL (130-400); RED BLOOD CELL COUNT(AUTO) 4.02 MIL/uL (4.50-6.20); RED CELL DISTRIBUTION WIDTH 15.2 % (11.0-15.5); WHITE BLOOD COUNT (AUTO) 8.3 K/uL (4.8-10.8)
[2020-03-09 05:16] LABS: ALBUMIN 1.8 g/dL (3.5-5.0); BILIRUBIN,TOTAL 1.2 mg/dL (0.2-1.0); CREATININE 0.6 mg/dL (0.5-1.5); MAGNESIUM 2.4 mg/dL (1.80-2.40); PHOSPHORUS 3.5 mg/dL (2.5-4.9); POTASSIUM 3.3 mmol/L (3.5-5.1); TOTAL PROTEIN, SERUM 5.8 g/dL (6.0-8.3)
[2020-03-09] MEDS: INSULIN HUMULIN R 100 UNIT/ML 3ML SQ SCH ×4 (06:00→17:59)
[2020-03-09] MEDS: LEVOTHYROXINE 100 MCG TABLET PO SCH (06:30)
[2020-03-09] MEDS: VECURONIUM BROMIDE 50 MG in SODIUM CHLORIDE 0.9% 50 ML IV PRN ×2 (06:54→08:32)
[2020-03-09] MEDS: LANSOPRAZOLE 15 MG SOLU TAB PEG SCH (08:30)
[2020-03-09] MEDS: LUBIPROSTONE 24 MCG CAP PO SCH ×2 (08:30→17:08)
[2020-03-09] MEDS: METOPROLOL TARTRATE 25 MG TAB GT SCH ×2 (08:31→21:45)
[2020-03-09] MEDS: ASCORBIC ACID 500 MG TAB PO SCH (08:31)
[2020-03-09] MEDS: ZINC SULFATE 220 CAPSULE PO SCH (08:31)
[2020-03-09] MEDS: ACETAMINOPHEN ELIXIR 325 MG/10.15ML UDCUP PO PRN (08:32)
[2020-03-09] MEDS: DEXMEDETOMIDINE HCL 400 MCG in SODIUM CHLORIDE 0.9% 100 ML IV SCH (08:33)
[2020-03-09] MEDS: ENOXAPARIN SODIUM 30 MG/0.3 ML SQ SCH (08:35)
[2020-03-09] MEDS: SODIUM CHLORIDE 45 ML SPRY NS SCH ×4 (08:36→21:00)
[2020-03-09] MEDS ORDERED: POTASSIUM CHLORIDE 10% ELIXIR 20 MEQ/15 ML UDCUP NG SCH (11:15)
[2020-03-09] MEDS: VANCOMYCIN 1.25 GM in SODIUM CHLORIDE 0.9% 250 ML IV SCH ×3 (12:00)
[2020-03-09] MEDS ORDERED: PHARMACY COMMUNICATION MISC SCH (17:30)
[2020-03-09] MEDS ORDERED: VECURONIUM BROMIDE 10 MG ML IV PRN (18:00)
[2020-03-09] MEDS ORDERED: FENTANYL 2500MCG+NS 250ML 250 ML IV ONE (21:35)
[2020-03-09] MEDS: INSULIN GLARGINE 100 UNITS/ML 10 ML VIAL SQ SCH (21:47)
[2020-03-10] VITALS (48 sets, daily range): BP systolic 75–166; BP diastolic 43–90
[2020-03-10] MEDS: CEFEPIME HCL 2 GM VIAL IVP SCH (00:53)
[2020-03-10 03:45] LABS: ABG OXYGEN SATURATION 79.5 % (95.0-99.0); ABG PCO2 65 mmHg (35-48)
[2020-03-10] MEDS: ARTIFICAL TEARS SOL 15 ML OD SCH ×6 (04:00→20:00)
[2020-03-10] MEDS: INSULIN HUMULIN R 100 UNIT/ML 3ML SQ SCH ×4 (06:00→18:00)
[2020-03-10] MEDS: LEVOTHYROXINE 100 MCG TABLET PO SCH (06:05)
[2020-03-10] MEDS: FUROSEMIDE 10 MG/ML 2ML VIAL IV SCH ×3 (06:05→22:20)
[2020-03-10 06:06] LABS: ALBUMIN 1.7 g/dL (3.5-5.0); BILIRUBIN,DIRECT 0.3 mg/dL (0.0-0.3); BILIRUBIN,TOTAL 0.7 mg/dL (0.2-1.0); MAGNESIUM 2.9 mg/dL (1.80-2.40); TOTAL PROTEIN, SERUM 5.3 g/dL (6.0-8.3)
[2020-03-10 06:17] LABS: BASOPHILS % (AUTO) 0.2 % (0.0-5.0); EOSINOPHILS % (AUTO) 3.1 % (0.0-8.0); HEMATOCRIT 35.2 % (42-54); LYMPHOCYTES % (AUTO) 5.1 % (21.0-51.0); MEAN CORPUSCULAR HGB CONC 30.7 g/dL (32.0-36.0); MEAN CORPUSCULAR VOLUME 94.4 fL (79-99); MONOCYTES % (AUTO) 2.8 % (3.0-13.0); NEUTROPHILS % (AUTO) 87.2 % (40.0-77.0); PLATELET COUNT (AUTO) 98 K/uL (130-400); RED BLOOD CELL COUNT(AUTO) 3.73 MIL/uL (4.50-6.20); RED CELL DISTRIBUTION WIDTH 15.4 % (11.0-15.5); WHITE BLOOD COUNT (AUTO) 8.1 K/uL (4.8-10.8)
[2020-03-10] MEDS: DEXMEDETOMIDINE HCL 400 MCG in SODIUM CHLORIDE 0.9% 100 ML IV SCH ×2 (06:26→09:47)
[2020-03-10 06:52] LABS: CREATININE 0.7 mg/dL (0.5-1.5); POTASSIUM 3.7 mmol/L (3.5-5.1)
[2020-03-10] MEDS: METOPROLOL TARTRATE 25 MG TAB GT SCH ×2 (08:24→22:20)
[2020-03-10] MEDS: ASCORBIC ACID 500 MG TAB PO SCH (08:24)
[2020-03-10] MEDS: LANSOPRAZOLE 15 MG SOLU TAB PEG SCH (08:24)
[2020-03-10] MEDS: LUBIPROSTONE 24 MCG CAP PO SCH ×2 (08:24→17:00)
[2020-03-10] MEDS: ZINC SULFATE 220 CAPSULE PO SCH (08:24)
[2020-03-10] MEDS: SODIUM CHLORIDE 45 ML SPRY NS SCH ×4 (08:24→21:00)
[2020-03-10] MEDS ORDERED: FENTANYL 2500MCG+NS 250ML 250 ML IV ONE (09:39)
[2020-03-10] MEDS ORDERED: PROPOFOL 1000 MG/100 ML 100 ML IV ONE (10:07)
[2020-03-10] MEDS ORDERED: FENTANYL CITRATE PF 0.05 MG/ML 1,000 MCG in SODIUM CHLORIDE 0.9% 100 ML IVPB SCH (10:30)
[2020-03-10] MEDS ORDERED: NOREPINEPHRINE 4MG/NS 250ML 250 ML IV SCH ×2 (10:40→11:00)
[2020-03-10] MEDS ORDERED: NOREPINEPHRINE 4MG/NS 250ML 250 ML IV ONE (10:41)
[2020-03-10] MEDS: ENOXAPARIN SODIUM 40 MG/0.4 ML SYRINGE SQ SCH ×2 (11:00→22:23)
[2020-03-10] MEDS ORDERED: NOREPINEPHRINE BITARTRATE 16 MG in SODIUM CHLORIDE 0.9% 250 ML IV SCH (11:00)
[2020-03-10] MEDS ORDERED: PHARMACY COMMUNICATION MISC SCH (11:00)
[2020-03-10] MEDS: VANCOMYCIN 1.25 GM in SODIUM CHLORIDE 0.9% 250 ML IV SCH ×3 (12:00)
[2020-03-10] MEDS: PROPOFOL 1000 MG/100 ML IV SCH ×3 (14:32→22:23)
[2020-03-10] MEDS: INSULIN GLARGINE 100 UNITS/ML 10 ML VIAL SQ SCH (22:22)
[2020-03-10] MEDS: VECURONIUM BROMIDE 50 MG in SODIUM CHLORIDE 0.9% 50 ML IV SCH (23:02)
[2020-03-11] VITALS (42 sets, daily range): BP systolic 108–146; BP diastolic 50–77
[2020-03-11] MEDS: VANCOMYCIN 1.25 GM in SODIUM CHLORIDE 0.9% 250 ML IV SCH ×2 (00:57→13:02)
[2020-03-11] MEDS: PROPOFOL 1000 MG/100 ML IV SCH ×7 (01:26→21:47)
[2020-03-11 03:25] LABS: ABG BASE EXCESS 6.3 mmol/L (-2.0-3.0); ABG HCO3 35.5 mmol/L (21.0-28.0); ABG OXYGEN SATURATION 72.6 % (95.0-99.0); ABG PCO2 72 mmHg (35-48)
[2020-03-11] MEDS: FUROSEMIDE 10 MG/ML 2ML VIAL IV SCH ×3 (03:46→21:40)
[2020-03-11] MEDS: ARTIFICAL TEARS SOL 15 ML OD SCH ×6 (04:00→17:11)
[2020-03-11 05:44] LABS: BASOPHILS % (AUTO) 0.2 % (0.0-5.0); EOSINOPHILS % (AUTO) 0.5 % (0.0-8.0); HEMATOCRIT 38.8 % (42-54); LYMPHOCYTES % (AUTO) 2.6 % (21.0-51.0); MEAN CORPUSCULAR HEMOGLOBIN 28.7 pg (27.0-33.0); MEAN CORPUSCULAR HGB CONC 30.4 g/dL (32.0-36.0); MEAN CORPUSCULAR VOLUME 94.4 fL (79-99); MONOCYTES % (AUTO) 3.1 % (3.0-13.0); NEUTROPHILS % (AUTO) 92.1 % (40.0-77.0); NUCLEATED RED BLOOD CELLS 0.2 % (0.0-0.19); PLATELET COUNT (AUTO) 124 K/uL (130-400); RED BLOOD CELL COUNT(AUTO) 4.11 MIL/uL (4.50-6.20); RED CELL DISTRIBUTION WIDTH 15.8 % (11.0-15.5); WHITE BLOOD COUNT (AUTO) 12.4 K/uL (4.8-10.8)
[2020-03-11] MEDS: INSULIN HUMULIN R 100 UNIT/ML 3ML SQ SCH ×4 (06:00→17:45)
[2020-03-11 06:09] LABS: CREATININE 0.6 mg/dL (0.5-1.5); MAGNESIUM 2.4 mg/dL (1.80-2.40); POTASSIUM 3.8 mmol/L (3.5-5.1)
[2020-03-11] MEDS: LEVOTHYROXINE 100 MCG TABLET PO SCH (06:30)
[2020-03-11 06:35] LABS: CRP QUANTITATIVE 272.9 mg/L (0.00-9.0)
[2020-03-11] MEDS: ENOXAPARIN SODIUM 40 MG/0.4 ML SYRINGE SQ SCH (08:00)
[2020-03-11] MEDS: LANSOPRAZOLE 15 MG SOLU TAB PEG SCH (08:00)
[2020-03-11] MEDS: ASCORBIC ACID 500 MG TAB PO SCH (08:00)
[2020-03-11] MEDS: ZINC SULFATE 220 CAPSULE PO SCH (08:00)
[2020-03-11] MEDS: LUBIPROSTONE 24 MCG CAP PO SCH ×3 (08:00→17:10)
[2020-03-11] MEDS: METOPROLOL TARTRATE 25 MG TAB GT SCH ×2 (08:00→21:40)
[2020-03-11] MEDS: VECURONIUM BROMIDE 50 MG in SODIUM CHLORIDE 0.9% 50 ML IV SCH (08:02)
[2020-03-11] MEDS: SODIUM CHLORIDE 45 ML SPRY NS SCH ×4 (09:00→21:00)
[2020-03-11] MEDS ORDERED: PHARMACY COMMUNICATION**MICAFUNGIN ORDER MISC SCH (09:45)
[2020-03-11] MEDS ORDERED: PHARMACY COMMUNICATION MISC SCH ×2 (09:45→14:15)
[2020-03-11] MEDS: MEROPENEM 1 GM VIAL IVP SCH ×2 (11:19→17:10)
[2020-03-11] MEDS ORDERED: ALBUTEROL SULFATE 0.042% 1.25 MG/3 ML INH IH SCH (12:00)
[2020-03-11] MEDS: FLUCONAZOLE 200 MG/NS 100 ML 100 ML IV SCH (14:46)
[2020-03-11] MEDS ORDERED: FENTANYL 2500MCG+NS 250ML 250 ML IV ONE (16:03)
[2020-03-11] MEDS ORDERED: FENTANYL 2500MCG+NS 250ML 250 ML IV SCH (16:15)
[2020-03-11] MEDS: ALBUTEROL INHALER 90MCG/INH IH SCH (17:10)
[2020-03-11] MEDS ORDERED: ENOXAPARIN SODIUM 80 MG/0.8 ML SQ SCH (21:00)
[2020-03-11] MEDS ORDERED: ENOXAPARIN SODIUM 60 MG/0.6 ML SQ SCH (21:00)
[2020-03-11] MEDS: INSULIN GLARGINE 100 UNITS/ML 10 ML VIAL SQ SCH (21:43)
[2020-03-11 23:24] LABS: APPEARANCE,URINE Cloudy (CLEAR); BILIRUBIN,URINE Small (NEGATIVE); COLOR,URINE Dark Yellow (YELLOW); GLUCOSE, URINE (UA) Negative (NEGATIVE); KETONES,URINE Negative (NEGATIVE); LEUKOCYTE ESTERASE ,URINE Trace (NEGATIVE); NITRATE,URINE Negative (NEGATIVE); OCCULT BLOOD,URINE Negative (NEGATIVE); PROTEIN,URINE POS 2+ mg/dL (NEGATIVE)
[2020-03-11 23:38] LABS: BACTERIA,URINE Few /HPF (None Seen); MUCUS,URINE Many LPF (None Seen); SQUAMOUS EPITHELIAL CELL,UR Moderate /HPF (0-2)
[2020-03-12] VITALS (62 sets, daily range): BP systolic 60–188; BP diastolic 31–115
[2020-03-12] MEDS: VANCOMYCIN 1.25 GM in SODIUM CHLORIDE 0.9% 250 ML IV SCH ×2
[2020-03-12] MEDS: MEROPENEM 1 GM VIAL IVP SCH ×3 (00:05→17:19)
[2020-03-12] MEDS: VECURONIUM BROMIDE 50 MG in SODIUM CHLORIDE 0.9% 50 ML IV SCH (00:36)
[2020-03-12] MEDS: PROPOFOL 1000 MG/100 ML IV SCH ×2 (02:04→05:06)
[2020-03-12 03:20] LABS: ABG BASE EXCESS 6.5 mmol/L (-2.0-3.0); ABG HCO3 33.7 mmol/L (21.0-28.0); ABG OXYGEN SATURATION 88.9 % (95.0-99.0); ABG PCO2 60 mmHg (35-48)
[2020-03-12] MEDS: ARTIFICAL TEARS SOL 15 ML OD SCH ×7 (04:00→23:19)
[2020-03-12 05:00] LABS: BASOPHILS % (AUTO) 0.2 % (0.0-5.0); EOSINOPHILS % (AUTO) 0.1 % (0.0-8.0); HEMATOCRIT 39.8 % (42-54); LYMPHOCYTES % (AUTO) 3.7 % (21.0-51.0); MEAN CORPUSCULAR HEMOGLOBIN 28.4 pg (27.0-33.0); MEAN CORPUSCULAR HGB CONC 29.4 g/dL (32.0-36.0); MEAN CORPUSCULAR VOLUME 96.6 fL (79-99); MONOCYTES % (AUTO) 3.4 % (3.0-13.0); NEUTROPHILS % (AUTO) 90.3 % (40.0-77.0); NUCLEATED RED BLOOD CELLS 0.2 % (0.0-0.19); PLATELET COUNT (AUTO) 154 K/uL (130-400); RED BLOOD CELL COUNT(AUTO) 4.12 MIL/uL (4.50-6.20); RED CELL DISTRIBUTION WIDTH 16.6 % (11.0-15.5); WHITE BLOOD COUNT (AUTO) 13.8 K/uL (4.8-10.8)
[2020-03-12] MEDS: FUROSEMIDE 10 MG/ML 2ML VIAL IV SCH (05:06)
[2020-03-12 05:18] LABS: POTASSIUM 4.3 mmol/L (3.5-5.1)
[2020-03-12 05:41] LABS: CRP QUANTITATIVE 510.6 mg/L (0.00-9.0)
[2020-03-12] MEDS: LEVOTHYROXINE 100 MCG TABLET PO SCH (05:56)
[2020-03-12] MEDS: INSULIN HUMULIN R 100 UNIT/ML 3ML SQ SCH ×3 (05:56→12:00)
[2020-03-12] MEDS: SODIUM CHLORIDE 45 ML SPRY NS SCH ×4 (09:00→21:26)
[2020-03-12] MEDS: METOPROLOL TARTRATE 25 MG TAB GT SCH ×2 (09:38→21:26)
[2020-03-12] MEDS: LANSOPRAZOLE 15 MG SOLU TAB PEG SCH (09:38)
[2020-03-12] MEDS: ASCORBIC ACID 500 MG TAB PO SCH (09:38)
[2020-03-12] MEDS: ZINC SULFATE 220 CAPSULE PO SCH (09:38)
[2020-03-12] MEDS: DEXAMETHASONE SOD PHOSPHATE 4 MG/ML 1ML VIAL IVP SCH ×2 (09:39→21:26)
[2020-03-12] MEDS: FUROSEMIDE 10 MG/ML 4ML VIAL IV SCH ×2 (12:45→21:26)
[2020-03-12] MEDS: LUBIPROSTONE 24 MCG CAP PO SCH (17:20)
[2020-03-12] MEDS: FLUCONAZOLE 200 MG/NS 100 ML 100 ML IV SCH (17:20)
[2020-03-12] MEDS: ALBUTEROL INHALER 90MCG/INH IH SCH (18:00)
[2020-03-12] MEDS: INSULIN GLARGINE 100 UNITS/ML 10 ML VIAL SQ SCH (21:55)
[2020-03-13] VITALS (47 sets, daily range): BP systolic 128–177; BP diastolic 68–94
[2020-03-13] MEDS: INSULIN HUMULIN R 100 UNIT/ML 3ML SQ SCH ×5 (00:33→18:00)
[2020-03-13] MEDS: MEROPENEM 1 GM VIAL IVP SCH ×3 (00:52→18:14)
[2020-03-13] MEDS: ARTIFICAL TEARS SOL 15 ML OD SCH ×5 (04:00→19:20)
[2020-03-13 04:09] LABS: ABG BASE EXCESS 9.4 mmol/L (-2.0-3.0); ABG HCO3 37.4 mmol/L (21.0-28.0); ABG OXYGEN SATURATION 87.5 % (95.0-99.0); ABG PCO2 65 mmHg (35-48)
[2020-03-13 04:22] LABS: MAGNESIUM 2.5 mg/dL (1.80-2.40)
[2020-03-13 04:48] LABS: BASOPHILS % (AUTO) 0.4 % (0.0-5.0); HEMATOCRIT 38.3 % (42-54); LYMPHOCYTES % (AUTO) 3.8 % (21.0-51.0); MEAN CORPUSCULAR HEMOGLOBIN 28.7 pg (27.0-33.0); MEAN CORPUSCULAR HGB CONC 30.5 g/dL (32.0-36.0); MEAN CORPUSCULAR VOLUME 93.9 fL (79-99); MONOCYTES % (AUTO) 2.6 % (3.0-13.0); NEUTROPHILS % (AUTO) 90.5 % (40.0-77.0); NUCLEATED RED BLOOD CELLS 0.4 % (0.0-0.19); PLATELET COUNT (AUTO) 210 K/uL (130-400); RED BLOOD CELL COUNT(AUTO) 4.08 MIL/uL (4.50-6.20); RED CELL DISTRIBUTION WIDTH 16.4 % (11.0-15.5); WHITE BLOOD COUNT (AUTO) 11.4 K/uL (4.8-10.8)
[2020-03-13 04:56] LABS: CREATININE 0.9 mg/dL (0.5-1.5); POTASSIUM 3.7 mmol/L (3.5-5.1)
[2020-03-13 05:20] LABS: CRP QUANTITATIVE 420.6 mg/L (0.00-9.0)
[2020-03-13] MEDS: FUROSEMIDE 10 MG/ML 4ML VIAL IV SCH (05:33)
[2020-03-13] MEDS: LEVOTHYROXINE 100 MCG TABLET PO SCH (06:24)
[2020-03-13] MEDS: LANSOPRAZOLE 15 MG SOLU TAB PEG SCH (09:00)
[2020-03-13] MEDS: ZINC SULFATE 220 CAPSULE PO SCH (09:57)
[2020-03-13] MEDS: SODIUM CHLORIDE 45 ML SPRY NS SCH ×4 (09:57→21:14)
[2020-03-13] MEDS: ASCORBIC ACID 500 MG TAB PO SCH (09:57)
[2020-03-13] MEDS: LUBIPROSTONE 24 MCG CAP PO SCH ×2 (09:57→18:14)
[2020-03-13] MEDS: METOPROLOL TARTRATE 25 MG TAB GT SCH ×2 (09:57→21:13)
[2020-03-13] MEDS: DEXAMETHASONE SOD PHOSPHATE 4 MG/ML 1ML VIAL IVP SCH ×2 (09:57→21:13)
[2020-03-13] MEDS: FLUCONAZOLE 200 MG/NS 100 ML 100 ML IV SCH (14:45)
[2020-03-13] MEDS: INSULIN GLARGINE 100 UNITS/ML 10 ML VIAL SQ SCH (21:00)
[2020-03-14] VITALS (29 sets, daily range): BP systolic 117–179; BP diastolic 70–98
[2020-03-14] MEDS: INSULIN HUMULIN R 100 UNIT/ML 3ML SQ SCH ×4 (00:16→18:26)
[2020-03-14] MEDS: ARTIFICAL TEARS SOL 15 ML OD SCH ×7 (00:24→23:05)
[2020-03-14] MEDS: MEROPENEM 1 GM VIAL IVP SCH ×3 (01:53→18:04)
[2020-03-14 03:57] LABS: ABG BASE EXCESS 12.7 mmol/L (-2.0-3.0); ABG HCO3 41.7 mmol/L (21.0-28.0); ABG PCO2 73 mmHg (35-48)
[2020-03-14] MEDS: PROPOFOL 1000 MG/100 ML IV SCH ×3 (04:05→22:43)
[2020-03-14 05:48] LABS: BASOPHILS % (AUTO) 0.2 % (0.0-5.0); HEMATOCRIT 39.9 % (42-54); LYMPHOCYTES % (AUTO) 3.3 % (21.0-51.0); MEAN CORPUSCULAR HEMOGLOBIN 28.7 pg (27.0-33.0); MEAN CORPUSCULAR HGB CONC 30.3 g/dL (32.0-36.0); MEAN CORPUSCULAR VOLUME 94.5 fL (79-99); NEUTROPHILS % (AUTO) 88.6 % (40.0-77.0); NUCLEATED RED BLOOD CELLS 0.4 % (0.0-0.19); PLATELET COUNT (AUTO) 260 K/uL (130-400); RED BLOOD CELL COUNT(AUTO) 4.22 MIL/uL (4.50-6.20); RED CELL DISTRIBUTION WIDTH 16.9 % (11.0-15.5)
[2020-03-14] MEDS: LEVOTHYROXINE 100 MCG TABLET PO SCH (05:52)
[2020-03-14 06:26] LABS: ALBUMIN 1.7 g/dL (3.5-5.0); BILIRUBIN,DIRECT 0.8 mg/dL (0.0-0.3); BILIRUBIN,TOTAL 1.1 mg/dL (0.2-1.0); CREATININE 0.7 mg/dL (0.5-1.5); POTASSIUM 3.8 mmol/L (3.5-5.1); TOTAL PROTEIN, SERUM 6.5 g/dL (6.0-8.3)
[2020-03-14] MEDS: POTASSIUM CHLORIDE 10% ELIXIR 20 MEQ/15 ML UDCUP PO PRN (06:47)
[2020-03-14 06:54] LABS: CRP QUANTITATIVE 209.5 mg/L (0.00-9.0)
[2020-03-14] MEDS: LUBIPROSTONE 24 MCG CAP PO SCH ×2 (08:00→18:04)
[2020-03-14] MEDS: DEXAMETHASONE SOD PHOSPHATE 4 MG/ML 1ML VIAL IVP SCH ×2 (10:34→20:50)
[2020-03-14] MEDS: METOPROLOL TARTRATE 25 MG TAB GT SCH (10:34)
[2020-03-14] MEDS: SODIUM CHLORIDE 45 ML SPRY NS SCH ×4 (10:35→20:50)
[2020-03-14] MEDS: ZINC SULFATE 220 CAPSULE PO SCH (10:35)
[2020-03-14] MEDS: LANSOPRAZOLE 15 MG SOLU TAB PEG SCH (10:35)
[2020-03-14] MEDS: ASCORBIC ACID 500 MG TAB PO SCH (10:35)
[2020-03-14] MEDS ORDERED: METOPROLOL TARTRATE 50 MG TAB GT SCH (11:00)
[2020-03-14] MEDS: METOPROLOL TARTRATE 50 MG TAB GT SCH (20:50)
[2020-03-14] MEDS: INSULIN GLARGINE 100 UNITS/ML 10 ML VIAL SQ SCH (21:00)
[2020-03-15] VITALS (45 sets, daily range): BP systolic 110–159; BP diastolic 61–87
[2020-03-15] MEDS: INSULIN HUMULIN R 100 UNIT/ML 3ML SQ SCH ×4 (00:45→18:23)
[2020-03-15] MEDS: MEROPENEM 1 GM VIAL IVP SCH ×3 (02:52→17:31)
[2020-03-15 04:09] LABS: ABG BASE EXCESS 10.1 mmol/L (-2.0-3.0); ABG HCO3 40.4 mmol/L (21.0-28.0); ABG OXYGEN SATURATION 92.8 % (95.0-99.0); ABG PCO2 83 mmHg (35-48)
[2020-03-15 05:00] LABS: ALBUMIN 1.7 g/dL (3.5-5.0); BILIRUBIN,DIRECT 0.6 mg/dL (0.0-0.3); BILIRUBIN,TOTAL 1.1 mg/dL (0.2-1.0); TOTAL PROTEIN, SERUM 6.2 g/dL (6.0-8.3)
[2020-03-15 05:19] LABS: CREATININE 0.6 mg/dL (0.5-1.5); CRP QUANTITATIVE 107.3 mg/L (0.00-9.0); POTASSIUM 4.4 mmol/L (3.5-5.1)
[2020-03-15 05:20] LABS: BASOPHILS % (AUTO) 0.4 % (0.0-5.0); HEMATOCRIT 40.8 % (42-54); LYMPHOCYTES % (AUTO) 3.3 % (21.0-51.0); MEAN CORPUSCULAR HGB CONC 30.1 g/dL (32.0-36.0); MEAN CORPUSCULAR VOLUME 96.2 fL (79-99); MONOCYTES % (AUTO) 3.6 % (3.0-13.0); NEUTROPHILS % (AUTO) 88.7 % (40.0-77.0); NUCLEATED RED BLOOD CELLS 0.2 % (0.0-0.19); PLATELET COUNT (AUTO) 262 K/uL (130-400); RED BLOOD CELL COUNT(AUTO) 4.24 MIL/uL (4.50-6.20); RED CELL DISTRIBUTION WIDTH 16.6 % (11.0-15.5); WHITE BLOOD COUNT (AUTO) 11.1 K/uL (4.8-10.8)
[2020-03-15] MEDS: LEVOTHYROXINE 100 MCG TABLET PO SCH (05:47)
[2020-03-15] MEDS: PROPOFOL 1000 MG/100 ML IV SCH ×3 (05:47→23:19)
[2020-03-15] MEDS: ARTIFICAL TEARS SOL 15 ML OD SCH ×5 (05:47→23:18)
[2020-03-15] MEDS: LANSOPRAZOLE 15 MG SOLU TAB PEG SCH (09:00)
[2020-03-15] MEDS: LUBIPROSTONE 24 MCG CAP PO SCH ×2 (09:13→17:31)
[2020-03-15] MEDS: METOPROLOL TARTRATE 50 MG TAB GT SCH ×2 (10:02→23:23)
[2020-03-15] MEDS: ASCORBIC ACID 500 MG TAB PO SCH (10:02)
[2020-03-15] MEDS: ZINC SULFATE 220 CAPSULE PO SCH (10:02)
[2020-03-15] MEDS: DEXAMETHASONE SOD PHOSPHATE 4 MG/ML 1ML VIAL IVP SCH ×2 (10:03→23:18)
[2020-03-15] MEDS: SODIUM CHLORIDE 45 ML SPRY NS SCH ×4 (10:05→21:00)
[2020-03-15] MEDS: DEXTROSE 5%-WATER 1,000 ML IV SCH (15:29)
[2020-03-15] MEDS: VECURONIUM BROMIDE 50 MG in SODIUM CHLORIDE 0.9% 50 ML IV SCH (17:33)
[2020-03-16] VITALS (32 sets, daily range): BP systolic 110–149; BP diastolic 63–84
[2020-03-16] MEDS: MEROPENEM 1 GM VIAL IVP SCH ×2 (01:05→10:42)
[2020-03-16] MEDS: INSULIN HUMULIN R 100 UNIT/ML 3ML SQ SCH ×3 (01:07→12:00)
[2020-03-16] MEDS: INSULIN GLARGINE 100 UNITS/ML 10 ML VIAL SQ SCH (01:09)
[2020-03-16] MEDS: ARTIFICAL TEARS SOL 15 ML OD SCH ×4 (01:10→12:33)
[2020-03-16 03:22] LABS: ABG BASE EXCESS 10.9 mmol/L (-2.0-3.0); ABG HCO3 40.7 mmol/L (21.0-28.0); ABG OXYGEN SATURATION 90.4 % (95.0-99.0); ABG PCO2 79 mmHg (35-48)
[2020-03-16] MEDS: PROPOFOL 1000 MG/100 ML IV SCH (03:33)
[2020-03-16] MEDS: LEVOTHYROXINE 100 MCG TABLET PO SCH (05:47)
[2020-03-16] MEDS: DEXTROSE 5%-WATER 1,000 ML IV SCH (05:48)
[2020-03-16 05:57] LABS: BASOPHILS % (AUTO) 0.3 % (0.0-5.0); LYMPHOCYTES % (AUTO) 2.6 % (21.0-51.0); MEAN CORPUSCULAR HEMOGLOBIN 29.2 pg (27.0-33.0); MEAN CORPUSCULAR HGB CONC 29.8 g/dL (32.0-36.0); MEAN CORPUSCULAR VOLUME 98.1 fL (79-99); MONOCYTES % (AUTO) 4.7 % (3.0-13.0); NEUTROPHILS % (AUTO) 89.2 % (40.0-77.0); NUCLEATED RED BLOOD CELLS 0.2 % (0.0-0.19); PLATELET COUNT (AUTO) 274 K/uL (130-400); RED BLOOD CELL COUNT(AUTO) 4.18 MIL/uL (4.50-6.20); RED CELL DISTRIBUTION WIDTH 16.1 % (11.0-15.5); WHITE BLOOD COUNT (AUTO) 12.1 K/uL (4.8-10.8)
[2020-03-16 06:06] LABS: CREATININE 0.6 mg/dL (0.5-1.5); CRP QUANTITATIVE 49.2 mg/L (0.00-9.0); POTASSIUM 4.8 mmol/L (3.5-5.1)
[2020-03-16] MEDS: LUBIPROSTONE 24 MCG CAP PO SCH (08:00)
[2020-03-16] MEDS: LANSOPRAZOLE 15 MG SOLU TAB PEG SCH (09:00)
[2020-03-16] MEDS: METOPROLOL TARTRATE 50 MG TAB GT SCH (10:42)
[2020-03-16] MEDS: SODIUM CHLORIDE 45 ML SPRY NS SCH ×2 (10:42→12:34)
[2020-03-16] MEDS: DEXAMETHASONE SOD PHOSPHATE 4 MG/ML 1ML VIAL IVP SCH (10:42)
[2020-03-16] MEDS ORDERED: GLYCOPYRROLATE 1 MG/5 ML SYRINGE IV PRN (14:00)
[2020-03-16] MEDS ORDERED: MORPHINE SULFATE 4 MG/1ML SYG IV PRN (14:00)
[2020-03-16] MEDS ORDERED: LORAZEPAM 2 MG/ML 1 ML VIAL IVP PRN (14:00)
== END 2020-03-16 20:28 | disposition expired | DRG 207 ==
LOC: EDH 17:02 → EDHIP 20:33 → 2AH 23:25 → 2BH 02-16 12:44
PROVIDERS: ADMIT Family Medicine; ATTEND Family Medicine
PROC: XW033E5 Introduction of Remdesivir Anti-infective into Peripheral Vein, Percutaneous Approach, New Technology Group 5 (ICD-10-PCS; 2020-02-15)
PROC: XW13325 Transfusion of Convalescent Plasma (Nonautologous) into Peripheral Vein, Percutaneous Approach, New Technology Group 5 (ICD-10-PCS; 2020-02-15)
PROC: 5A0945A Assistance with Respiratory Ventilation, 24-96 Consecutive Hours, High Flow/Velocity Cannula (ICD-10-PCS; 2020-02-16)
PROC: 5A09357 Assistance with Respiratory Ventilation, Less than 24 Consecutive Hours, Continuous Positive Airway Pressure (ICD-10-PCS; 2020-02-20)
PROC: 5A0935A Assistance with Respiratory Ventilation, Less than 24 Consecutive Hours, High Flow/Velocity Cannula (ICD-10-PCS; 2020-02-20)
PROC: 5A0935A Assistance with Respiratory Ventilation, Less than 24 Consecutive Hours, High Flow/Velocity Cannula (ICD-10-PCS; 2020-02-21)
PROC: 5A09357 Assistance with Respiratory Ventilation, Less than 24 Consecutive Hours, Continuous Positive Airway Pressure (ICD-10-PCS; 2020-02-22)
PROC: 5A1955Z Respiratory Ventilation, Greater than 96 Consecutive Hours (ICD-10-PCS; principal; 2020-02-24)
PROC: 0BH17EZ Insertion of Endotracheal Airway into Trachea, Via Natural or Artificial Opening (ICD-10-PCS; 2020-02-24)
PROC: 5A09357 Assistance with Respiratory Ventilation, Less than 24 Consecutive Hours, Continuous Positive Airway Pressure (ICD-10-PCS; 2020-02-24)
PROC: 0W9930Z Drainage of Right Pleural Cavity with Drainage Device, Percutaneous Approach (ICD-10-PCS; 2020-03-04)
PROC: 02HV33Z Insertion of Infusion Device into Superior Vena Cava, Percutaneous Approach (ICD-10-PCS; 2020-03-10)
PROC: B548ZZA Ultrasonography of Superior Vena Cava, Guidance (ICD-10-PCS; 2020-03-10)
PROC: 0B9F8ZX Drainage of Right Lower Lung Lobe, Via Natural or Artificial Opening Endoscopic, Diagnostic (ICD-10-PCS; 2020-03-10)
PROC: 0W9B30Z Drainage of Left Pleural Cavity with Drainage Device, Percutaneous Approach (ICD-10-PCS; 2020-03-12)
DX: U07.1 COVID-19 (principal); J80 Acute respiratory distress syndrome; E43 Unspecified severe protein-calorie malnutrition; J12.82 Pneumonia due to coronavirus disease 2019; K72.00 Acute and subacute hepatic failure without coma; D68.59 Other primary thrombophilia; E87.0 Hyperosmolality and hypernatremia; E87.1 Hypo-osmolality and hyponatremia; J93.83 Other pneumothorax; G47.33 Obstructive sleep apnea (adult) (pediatric); E87.6 Hypokalemia; D69.6 Thrombocytopenia, unspecified; Z66 Do not resuscitate; G83.9 Paralytic syndrome, unspecified; E86.0 Dehydration; E87.8 Other disorders of electrolyte and fluid balance, not elsewhere classified; J98.2 Interstitial emphysema; R74.8 Abnormal levels of other serum enzymes; I10 Essential (primary) hypertension; R79.89 Other specified abnormal findings of blood chemistry; E03.9 Hypothyroidism, unspecified; E66.01 Morbid (severe) obesity due to excess calories; R53.81 Other malaise; I11.9 Hypertensive heart disease without heart failure; E78.5 Hyperlipidemia, unspecified; Z68.35 Body mass index [BMI] 35.0-35.9, adult
CPT/HCPCS: 31500; 36415; 36556; 36600; 71045; 71275; 80048; 80053; 80061; 80069; 80076; 80202; 81001; 81003; 82040; 82435; 82550; 82728; 82803; 82947; 82948; 83036; 83605; 83615; 83735; 83880; 84100; 84132; 84145; 84295; 84478; 84484; 85018; 85025; 85027; 85378; 85610; 85651; 85730; 86140; 86606; 86900; 86901; 86927; 87040; 87071; 87076; 87088; 87205; 87426; 87641; 87804; 92950; 93005; 93306; 93356; 93970; 94002; 94003; 94660; A4344; C9113; G0378; J0456; J0692; J0696; J1100; J1120; J1450; J1650; J1815; J1940; J2060; J2185; J2270; J2704; J3010; J3370; J3475; J3480; J3490; J7050; J7070; P9047; Q9967